=== PATIENT | male | born 1945 | race Two or more races ===

== ENCOUNTER 2020-06-09 21:59 | Inpatient (IN) | payer OTHER ==
[~2020-06-09] VITALS: Ht 172.7 cm; Wt 83.4 kg
[2020-06-10 00:03] LABS: Basophils # (auto) 0 10 ^3/uL (0-0.2); Eosinophils # (auto) 0 10 ^3/uL (0-0.8); Hematocrit 49.6 % (41.0-53.0); Lymphocytes # (auto) 0.2 10 ^3/uL (0.4-5.4); Lymphocytes % (auto) 1.8 % (10.0-50.0); Mean Corpuscular Hemoglobin 33.8 pg (28.0-32.0); Mean Corpuscular Hgb Conc. 34.4 g/dL (32.0-36.0); Mean Corpuscular Volume 98.5 fL (80.0-100.0); Monocytes # (auto) 0.4 10 ^3/uL (0-1.3); Monocytes % (auto) 2.9 % (0.0-12.0); Neutrophils # (auto) 12.8 10 ^3/uL (1.6-8.6); Neutrophils % (auto) 95.3 % (37.0-80.0); Red Blood Cells 5.03 10^6/uL (4.5-5.90); White Blood Cell 13.5 10^3/uL (4.4-10.8)
[2020-06-10] MEDS ORDERED: DexAMETHasone SOD PHOS 10MG/1ML VIAL INJ IV ONE (00:15)
[2020-06-10] MEDS ORDERED: DOXYCYCLINE 100MG/250ML 250 ML IV ONE (00:15)
[2020-06-10 00:17] LABS: Albumin 2.8 g/dL (3.4-5.0); BUN/Creatinine Ratio 19.5; Calcium 8.5 mg/dL (8.5-10.1); Potassium 3.8 mmol/L (3.5-5.1)
[2020-06-10 00:18] LABS: INR 1.35 (0.9-1.15); Partial Thromboplastin Time 28.6 sec (23.0-31.2)
[2020-06-10 00:19] LABS: Lactic Acid w/Reflex 5.2 mmol/L (0.4-2.0)
[2020-06-10 00:22] LABS: Bilirubin, Total 1.2 mg/dL (0.2-1.0); Total Protein 6.8 g/dL (6.4-8.2)
[2020-06-10] MEDS ORDERED: ENOXAPARIN SOD 100 MG/1 ML SYRINGE SC ONE (00:45)
[2020-06-10 02:30] VITALS: BP 114/74
[2020-06-10] MEDS ORDERED: HYDROcodone-ACET 5/325MG TAB PO PRN (03:45)
[2020-06-10] MEDS ORDERED: ONDANSETRON HCL 4 MG/2 ML VIAL IV PRN (03:45)
[2020-06-10] MEDS ORDERED: SODIUM CHLORIDE 0.9% 1,000 ML IV SCH (03:45)
[2020-06-10] MEDS ORDERED: DOCUSATE SOD 100 MG CAP PO PRN (03:45)
[2020-06-10] MEDS ORDERED: DEXTROSE (50%) 50ML SYRG IV PRN (03:45)
[2020-06-10] MEDS ORDERED: NITROGLYCERIN 0.4 MG SL TAB SL PRN (03:45)
[2020-06-10 06:00] VITALS: BP 114/74
[2020-06-10] MEDS: InsuLIN REG 1unit/0.01ml Soln (100units/ml) SC SCH ×4 (06:38→22:35)
[2020-06-10] MEDS: ACCU-CHEK COMFORT CURVE STRIP VI SCH ×4 (06:38→22:23)
[2020-06-10 10:00] VITALS: BP 114/74
[2020-06-10] MEDS ORDERED: ENOXAPARIN SOD 40 MG/0.4 ML SYRINGE SC SCH (10:00)
[2020-06-10] MEDS ORDERED: DOXYCYCLINE 100MG/250ML 250 ML IV SCH (10:00)
[2020-06-10] MEDS ORDERED: DexAMETHasone SOD PHOS 10MG/1ML VIAL INJ IV SCH (10:00)
[2020-06-10] MEDS: MULTIPLE VITAMIN TAB PO SCH ×2 (10:00→12:00)
[2020-06-10] MEDS ORDERED: BUDESONIDE (INHALATION) 180 MCG IH IN SCH (10:00)
[2020-06-10] MEDS: ASCORBIC ACID 1,000 MG TAB PO SCH ×2 (10:00→12:00)
[2020-06-10] MEDS: ZINC SULFATE 220mg CAP or TAB PO SCH ×2 (10:00→12:00)
[2020-06-10] MEDS: CHOLECALCIFEROL (VITD3) 2,000 UNIT CAP/TAB PO SCH ×2 (10:00→12:00)
[2020-06-10] MEDS ORDERED: HEPARIN SODIUM (PORCINE) 5000 UNITS/ML 1ML VIAL SC SCH (10:00)
[2020-06-10 10:04] LABS: Basophils # (auto) 0.1 10 ^3/uL (0-0.2); Basophils % (auto) 0.9 % (0.0-2.0); Eosinophils # (auto) 0 10 ^3/uL (0-0.8); Eosinophils % (auto) 0.1 % (0.0-7.0); Hematocrit 50.5 % (41.0-53.0); Hemoglobin 17.3 g/dL (13.5-17.5); Lymphocytes # (auto) 0.3 10 ^3/uL (0.4-5.4); Lymphocytes % (auto) 1.9 % (10.0-50.0); Mean Corpuscular Hemoglobin 33.3 pg (28.0-32.0); Mean Corpuscular Hgb Conc. 34.2 g/dL (32.0-36.0); Mean Corpuscular Volume 97.3 fL (80.0-100.0); Monocytes # (auto) 0.4 10 ^3/uL (0-1.3); Monocytes % (auto) 2.7 % (0.0-12.0); Neutrophils # (auto) 14.9 10 ^3/uL (1.6-8.6); Neutrophils % (auto) 94.4 % (37.0-80.0); Red Blood Cells 5.19 10^6/uL (4.5-5.90); White Blood Cell 15.8 10^3/uL (4.4-10.8)
[2020-06-10 10:27] LABS: Albumin 2.7 g/dL (3.4-5.0); Calcium 8.4 mg/dL (8.5-10.1); Potassium 3.8 mmol/L (3.5-5.1)
[2020-06-10 10:30] LABS: Bilirubin, Total 1.1 mg/dL (0.2-1.0); Total Protein 6.9 g/dL (6.4-8.2)
[2020-06-10] MEDS ORDERED: FUROSEMIDE 40 MG/4 ML VIAL IV ONE ×2 (12:00→16:00)
[2020-06-10] MEDS ORDERED: REMDESIVIR PER PHARMACY 0 ML IV SCH (12:00)
[2020-06-10] MEDS: FAMOTIDINE (10MG/ML) 2ML VL IV SCH ×2 (12:00→22:00)
[2020-06-10] MEDS ORDERED: diphenhdrAMINE HCL 50 MG/1 ML VL IV PRN (12:00)
[2020-06-10] MEDS ORDERED: LORazepam 2MG/ML-1ML VIAL ONE (13:41)
[2020-06-10] MEDS ORDERED: LORazepam 2MG/ML-1ML VIAL IV PRN (13:45)
[2020-06-10] MEDS ORDERED: SUCCINYLCHOLINE CHLORIDE 20 MG/ML 10ML VIAL IV ONE ×2 (14:14→14:15)
[2020-06-10] MEDS ORDERED: ETOMIDATE (2MG/ML) 20ML VIAL IV ONE ×2 (14:14→14:15)
[2020-06-10] MEDS: MIDAZOLAM DRIP 50 mg/50mL 50 ML IV SCH (14:15)
[2020-06-10] MEDS: fentaNYL Drip 2500mCg/250mlNS 250 ML IV SCH (14:15)
[2020-06-10] MEDS: PROPOFOL 100 ML IV SCH (14:15)
[2020-06-10] MEDS ORDERED: MIDAZOLAM DRIP 50 mg/50mL 50 ML IV ONE (14:18)
[2020-06-10] MEDS: DOXYCYCLINE 100MG/250ML 250 ML IV SCH (14:30)
[2020-06-10 14:57] VITALS: BP 151/121
[2020-06-10] MEDS ORDERED: REMDESIVIR 200 MG in NS 210ml LOADING DOSE ADULT IV ONE (15:00)
[2020-06-10] MEDS: NOREPINEPHRINE 8 MG/250ML KIT 250 ML IV SCH (16:32)
[2020-06-10] MEDS: CEFEPIME 1 GM in SODIUM CHL 0.9% 50 ML IV SCH (17:30)
[2020-06-10 18:15] VITALS: BP 103/67
[2020-06-10] MEDS: ENOXAPARIN SOD 100 MG/1 ML SYRINGE SC SCH (22:00)
[2020-06-10] MEDS ORDERED: CEFEPIME 1 GM in SODIUM CHL 0.9% 50 ML IV SCH (22:00)
[2020-06-10] MEDS: DexAMETHasone SOD PHOS 10MG/1ML VIAL INJ IV SCH (22:00)
[2020-06-10 22:14] VITALS: BP 130/63
[2020-06-11] MEDS: CEFEPIME 1 GM in SODIUM CHL 0.9% 50 ML IV SCH ×3 (01:10→16:37)
[2020-06-11 02:33] VITALS: BP 106/65
[2020-06-11] MEDS: DOXYCYCLINE 100MG/250ML 250 ML IV SCH ×2 (03:49→14:02)
[2020-06-11 06:35] VITALS: BP 104/64
[2020-06-11] MEDS: ACCU-CHEK COMFORT CURVE STRIP VI SCH ×4 (06:43→21:48)
[2020-06-11] MEDS: InsuLIN REG 1unit/0.01ml Soln (100units/ml) SC SCH ×4 (07:01→22:26)
[2020-06-11 07:14] LABS: Basophils # (auto) 0.1 10 ^3/uL (0-0.2); Basophils % (auto) 0.3 % (0.0-2.0); Eosinophils # (auto) 0 10 ^3/uL (0-0.8); Hematocrit 45.9 % (41.0-53.0); Hemoglobin 15.7 g/dL (13.5-17.5); Lymphocytes # (auto) 0.2 10 ^3/uL (0.4-5.4); Mean Corpuscular Hemoglobin 33.6 pg (28.0-32.0); Mean Corpuscular Hgb Conc. 34.2 g/dL (32.0-36.0); Mean Corpuscular Volume 98.2 fL (80.0-100.0); Monocytes # (auto) 0.5 10 ^3/uL (0-1.3); Monocytes % (auto) 2.4 % (0.0-12.0); Neutrophils # (auto) 20.7 10 ^3/uL (1.6-8.6); Neutrophils % (auto) 96.3 % (37.0-80.0); Nucleated Red Blood Cells % 0.1 %; Red Blood Cells 4.68 10^6/uL (4.5-5.90); Red Cell Distribution Width 14.3 % (11.8-14.3); White Blood Cell 21.5 10^3/uL (4.4-10.8)
[2020-06-11 07:49] LABS: Albumin 2.5 g/dL (3.4-5.0); BUN/Creatinine Ratio 22.2; Calcium 8.5 mg/dL (8.5-10.1); Potassium 3.9 mmol/L (3.5-5.1)
[2020-06-11 07:52] LABS: Bilirubin, Total 0.6 mg/dL (0.2-1.0); Total Protein 6.5 g/dL (6.4-8.2)
[2020-06-11] MEDS: ENOXAPARIN SOD 100 MG/1 ML SYRINGE SC SCH ×2 (08:57→21:17)
[2020-06-11] MEDS: ZINC SULFATE 220mg CAP or TAB PO SCH (08:57)
[2020-06-11] MEDS: CHOLECALCIFEROL (VITD3) 2,000 UNIT CAP/TAB PO SCH (08:57)
[2020-06-11] MEDS: DexAMETHasone SOD PHOS 10MG/1ML VIAL INJ IV SCH ×2 (08:57→21:17)
[2020-06-11] MEDS: MULTIPLE VITAMIN TAB PO SCH (08:57)
[2020-06-11] MEDS: ASCORBIC ACID 1,000 MG TAB PO SCH (08:57)
[2020-06-11] MEDS: FAMOTIDINE (10MG/ML) 2ML VL IV SCH ×2 (08:57→21:17)
[2020-06-11] MEDS: ALBUMIN 25% 100 ML IV SCH ×2 (11:27→19:18)
[2020-06-11] MEDS: MIDAZOLAM DRIP 50 mg/50mL 50 ML IV SCH (14:03)
[2020-06-11] MEDS: PROPOFOL 100 ML IV SCH (14:03)
[2020-06-11] MEDS: fentaNYL Drip 2500mCg/250mlNS 250 ML IV SCH (14:03)
[2020-06-11] MEDS: REMDESIVIR 100 MG in SODIUM CHL 0.9% 250 ML IV SCH (15:00)
[2020-06-11 15:02] VITALS: BP 107/63
[2020-06-11] MEDS: NOREPINEPHRINE 8 MG/250ML KIT 250 ML IV SCH (16:37)
[2020-06-11 18:59] VITALS: BP 114/64
[2020-06-11] MEDS ORDERED: ACETAMINOPHEN 650 mg PER 20.3 mL UD PO ONE (20:00)
[2020-06-11] MEDS ORDERED: methylPREDNISolone SOD SUCC 40 MG/ML VL IV ONE (20:00)
[2020-06-11] MEDS ORDERED: diphenhdrAMINE HCL 50 MG/1 ML VL IV ONE (20:00)
[2020-06-11] MEDS ORDERED: TOCILIZUMAB 400 MG in SODIUM CHL 0.9% 80 ML IV ONE (20:30)
[2020-06-11 22:21] VITALS: BP 155/77
[2020-06-12 01:31] LABS: Basophils # (auto) 0 10 ^3/uL (0-0.2); Eosinophils # (auto) 0 10 ^3/uL (0-0.8); Hematocrit 41.4 % (41.0-53.0); Hemoglobin 14.3 g/dL (13.5-17.5); Lymphocytes # (auto) 0.3 10 ^3/uL (0.4-5.4); Lymphocytes % (auto) 1.7 % (10.0-50.0); Mean Corpuscular Hemoglobin 33.8 pg (28.0-32.0); Mean Corpuscular Hgb Conc. 34.6 g/dL (32.0-36.0); Mean Corpuscular Volume 97.7 fL (80.0-100.0); Monocytes # (auto) 0.8 10 ^3/uL (0-1.3); Monocytes % (auto) 4.3 % (0.0-12.0); Neutrophils # (auto) 17.2 10 ^3/uL (1.6-8.6); Nucleated Red Blood Cells % 0.1 %; Red Blood Cells 4.24 10^6/uL (4.5-5.90); Red Cell Distribution Width 14.2 % (11.8-14.3); White Blood Cell 18.3 10^3/uL (4.4-10.8)
[2020-06-12] MEDS: DOXYCYCLINE 100MG/250ML 250 ML IV SCH ×2 (01:40→14:44)
[2020-06-12 01:45] LABS: Albumin 3.3 g/dL (3.4-5.0); Calcium 8.5 mg/dL (8.5-10.1); Potassium 3.9 mmol/L (3.5-5.1)
[2020-06-12 01:48] LABS: BUN/Creatinine Ratio 24.3
[2020-06-12 01:59] LABS: Bilirubin, Total 0.7 mg/dL (0.2-1.0); Total Protein 6.6 g/dL (6.4-8.2)
[2020-06-12] MEDS: ALBUMIN 25% 100 ML IV SCH (02:02)
[2020-06-12 02:23] VITALS: BP 167/66
[2020-06-12] MEDS: ACCU-CHEK COMFORT CURVE STRIP VI SCH ×4 (05:17→22:24)
[2020-06-12] MEDS: InsuLIN REG 1unit/0.01ml Soln (100units/ml) SC SCH ×4 (05:46→22:12)
[2020-06-12 07:14] VITALS: BP 160/72
[2020-06-12] MEDS ORDERED: ACETAMINOPHEN 650 mg PER 20.3 mL UD PO ONE (09:30)
[2020-06-12] MEDS ORDERED: methylPREDNISolone SOD SUCC 40 MG/ML VL IV ONE (09:30)
[2020-06-12] MEDS ORDERED: diphenhdrAMINE HCL 50 MG/1 ML VL IV ONE (09:30)
[2020-06-12] MEDS: CEFEPIME 1 GM in SODIUM CHL 0.9% 50 ML IV SCH ×2 (10:00→22:16)
[2020-06-12] MEDS: ZINC SULFATE 220mg CAP or TAB PO SCH (10:00)
[2020-06-12] MEDS: ASCORBIC ACID 1,000 MG TAB PO SCH (10:00)
[2020-06-12] MEDS: DexAMETHasone SOD PHOS 10MG/1ML VIAL INJ IV SCH ×2 (10:00→22:16)
[2020-06-12] MEDS: MULTIPLE VITAMIN TAB PO SCH (10:00)
[2020-06-12] MEDS: ENOXAPARIN SOD 100 MG/1 ML SYRINGE SC SCH (10:00)
[2020-06-12] MEDS: CHOLECALCIFEROL (VITD3) 2,000 UNIT CAP/TAB PO SCH (10:00)
[2020-06-12] MEDS ORDERED: TOCILIZUMAB 400 MG in SODIUM CHL 0.9% 80 ML IV ONE (10:00)
[2020-06-12 11:49] VITALS: BP 179/74
[2020-06-12] MEDS: LABETALOL HCL 5 MG/ML 4ML SYRINGE IV PRN (12:25)
[2020-06-12 14:12] VITALS: BP 126/68
[2020-06-12] MEDS: MIDAZOLAM DRIP 50 mg/50mL 50 ML IV SCH (14:15)
[2020-06-12] MEDS: PROPOFOL 100 ML IV SCH (14:15)
[2020-06-12] MEDS: fentaNYL Drip 2500mCg/250mlNS 250 ML IV SCH (14:15)
[2020-06-12] MEDS: REMDESIVIR 100 MG in SODIUM CHL 0.9% 250 ML IV SCH (15:06)
[2020-06-12] MEDS: NOREPINEPHRINE 8 MG/250ML KIT 250 ML IV SCH (15:08)
[2020-06-12 18:37] VITALS: BP 153/69
[2020-06-12 21:37] VITALS: BP 171/81
[2020-06-12] MEDS ORDERED: FAMOTIDINE (10MG/ML) 2ML VL IV SCH (22:00)
[2020-06-13 01:31] VITALS: BP 130/64
[2020-06-13] MEDS: DOXYCYCLINE 100MG/250ML 250 ML IV SCH (01:51)
[2020-06-13] MEDS: InsuLIN REG 1unit/0.01ml Soln (100units/ml) SC SCH ×4 (06:26→22:44)
[2020-06-13] MEDS: ACCU-CHEK COMFORT CURVE STRIP VI SCH ×4 (06:27→22:00)
[2020-06-13 07:10] VITALS: BP 126/66
[2020-06-13 07:46] LABS: Albumin 2.8 g/dL (3.4-5.0); BUN/Creatinine Ratio 27.5; Bilirubin, Total 0.6 mg/dL (0.2-1.0); Calcium 8.8 mg/dL (8.5-10.1); Total Protein 6.2 g/dL (6.4-8.2)
[2020-06-13] MEDS: MIDAZOLAM DRIP 50 mg/50mL 50 ML IV SCH ×2 (08:28→08:38)
[2020-06-13 09:22] LABS: Basophils # (auto) 0 10 ^3/uL (0-0.2); Basophils % (auto) 0.1 % (0.0-2.0); Eosinophils # (auto) 0 10 ^3/uL (0-0.8); Hematocrit 41.4 % (41.0-53.0); Lymphocytes # (auto) 0.3 10 ^3/uL (0.4-5.4); Lymphocytes % (auto) 1.9 % (10.0-50.0); Mean Corpuscular Hgb Conc. 33.7 g/dL (32.0-36.0); Monocytes % (auto) 6.8 % (0.0-12.0); Neutrophils % (auto) 91.2 % (37.0-80.0); Red Blood Cells 4.23 10^6/uL (4.5-5.90); Red Cell Distribution Width 14.4 % (11.8-14.3); White Blood Cell 14.3 10^3/uL (4.4-10.8)
[2020-06-13] MEDS ORDERED: ENOXAPARIN SOD 100 MG/1 ML SYRINGE SC SCH (10:00)
[2020-06-13] MEDS: DexAMETHasone SOD PHOS 10MG/1ML VIAL INJ IV SCH (10:16)
[2020-06-13] MEDS: ZINC SULFATE 220mg CAP or TAB PO SCH (10:17)
[2020-06-13] MEDS: MULTIPLE VITAMIN TAB PO SCH (10:18)
[2020-06-13] MEDS: CHOLECALCIFEROL (VITD3) 2,000 UNIT CAP/TAB PO SCH (10:18)
[2020-06-13] MEDS: ASCORBIC ACID 1,000 MG TAB PO SCH (10:18)
[2020-06-13] MEDS: CEFEPIME 1 GM in SODIUM CHL 0.9% 50 ML IV SCH ×2 (10:19→23:51)
[2020-06-13 11:15] VITALS: BP 133/62
[2020-06-13] MEDS ORDERED: Glucerna 1.2 Cal 1Liter BOTTLE GT SCH (11:45)
[2020-06-13] MEDS: fentaNYL Drip 2500mCg/250mlNS 250 ML IV SCH (14:15)
[2020-06-13] MEDS: PROPOFOL 100 ML IV SCH (14:15)
[2020-06-13 15:37] VITALS: BP 119/61
[2020-06-13] MEDS: NOREPINEPHRINE 8 MG/250ML KIT 250 ML IV SCH (16:15)
[2020-06-13 18:38] VITALS: BP 125/60
[2020-06-13 22:16] VITALS: BP 133/69
[2020-06-13] MEDS: FAMOTIDINE (10MG/ML) 2ML VL IV SCH (22:43)
[2020-06-14 02:30] VITALS: BP 141/73
[2020-06-14] MEDS: DOXYCYCLINE 100MG/250ML 250 ML IV SCH ×3 (03:28→14:30)
[2020-06-14] MEDS: MIDAZOLAM DRIP 50 mg/50mL 50 ML IV SCH ×2 (03:52→08:29)
[2020-06-14] MEDS: fentaNYL Drip 2500mCg/250mlNS 250 ML IV SCH (03:52)
[2020-06-14] MEDS: ACCU-CHEK COMFORT CURVE STRIP VI SCH ×4 (06:45→23:14)
[2020-06-14 06:46] VITALS: BP 107/61
[2020-06-14] MEDS: InsuLIN REG 1unit/0.01ml Soln (100units/ml) SC SCH ×4 (06:47→23:20)
[2020-06-14 07:08] LABS: Hematocrit 40.9 % (41.0-53.0); Hemoglobin 13.8 g/dL (13.5-17.5); Mean Corpuscular Hemoglobin 33.3 pg (28.0-32.0); Mean Corpuscular Hgb Conc. 33.8 g/dL (32.0-36.0); Mean Corpuscular Volume 98.6 fL (80.0-100.0); Red Blood Cells 4.15 10^6/uL (4.5-5.90); Red Cell Distribution Width 14.4 % (11.8-14.3); White Blood Cell 11.2 10^3/uL (4.4-10.8)
[2020-06-14 07:41] LABS: Basophils % (manual) 0 (0.0-2.0); Blast Cells 0; Eosinophils % (manual) 0 (0-7); Lymphocytes % (manual) 0 (10.0-50.0); Metamyelocytes % 0; Myelocytes % 0; Promyelocytes % 0; Reactive Lymphocytes 0
[2020-06-14 08:19] LABS: Albumin 2.7 g/dL (3.4-5.0); BUN/Creatinine Ratio 36.9; Bilirubin, Total 0.7 mg/dL (0.2-1.0); CRP High Sensitivity 2.89 mg/dL (< 0.3); Calcium 8.8 mg/dL (8.5-10.1); Potassium 4.6 mmol/L (3.5-5.1); Total Protein 6.1 g/dL (6.4-8.2)
[2020-06-14] MEDS: DexAMETHasone SOD PHOS 10MG/1ML VIAL INJ IV SCH (10:00)
[2020-06-14] MEDS: FAMOTIDINE (10MG/ML) 2ML VL IV SCH ×2 (10:00→23:14)
[2020-06-14] MEDS: MULTIPLE VITAMIN TAB PO SCH (10:00)
[2020-06-14] MEDS: ZINC SULFATE 220mg CAP or TAB PO SCH (10:00)
[2020-06-14] MEDS: ASCORBIC ACID 1,000 MG TAB PO SCH (10:00)
[2020-06-14] MEDS: CHOLECALCIFEROL (VITD3) 2,000 UNIT CAP/TAB PO SCH (10:00)
[2020-06-14 11:47] LABS: Band Neutrophils % (manual) 4; Monocytes % (manual) 3 (0-12)
[2020-06-14] MEDS: CEFEPIME 1 GM in SODIUM CHL 0.9% 50 ML IV SCH ×2 (12:31→23:14)
[2020-06-14 14:08] VITALS: BP 115/66
[2020-06-14] MEDS: PROPOFOL 100 ML IV SCH (15:04)
[2020-06-14] MEDS: REMDESIVIR 100 MG in SODIUM CHL 0.9% 250 ML IV SCH (15:16)
[2020-06-14] MEDS: NOREPINEPHRINE 8 MG/250ML KIT 250 ML IV SCH (19:30)
[2020-06-14 19:39] VITALS: BP 108/58
[2020-06-14 22:38] VITALS: BP 113/61
[2020-06-14] MEDS: ENOXAPARIN SOD 40 MG/0.4 ML SYRINGE SC SCH (23:14)
[2020-06-15 02:24] VITALS: BP 114/62
[2020-06-15] MEDS: DOXYCYCLINE 100MG/250ML 250 ML IV SCH ×2 (02:40→14:54)
[2020-06-15 06:40] VITALS: BP 130/65
[2020-06-15] MEDS: InsuLIN REG 1unit/0.01ml Soln (100units/ml) SC SCH ×4 (07:00→23:30)
[2020-06-15] MEDS: ACCU-CHEK COMFORT CURVE STRIP VI SCH ×4 (07:08→23:27)
[2020-06-15] MEDS: FAMOTIDINE (10MG/ML) 2ML VL IV SCH ×2 (10:00→23:30)
[2020-06-15] MEDS: DexAMETHasone SOD PHOS 10MG/1ML VIAL INJ IV SCH (10:00)
[2020-06-15] MEDS: CEFEPIME 1 GM in SODIUM CHL 0.9% 50 ML IV SCH ×2 (10:00→22:30)
[2020-06-15] MEDS: CHOLECALCIFEROL (VITD3) 2,000 UNIT CAP/TAB PO SCH (10:00)
[2020-06-15] MEDS: ENOXAPARIN SOD 40 MG/0.4 ML SYRINGE SC SCH ×2 (10:00→23:30)
[2020-06-15] MEDS: ZINC SULFATE 220mg CAP or TAB PO SCH (10:00)
[2020-06-15] MEDS: ASCORBIC ACID 1,000 MG TAB PO SCH (10:00)
[2020-06-15] MEDS: MULTIPLE VITAMIN TAB PO SCH (10:00)
[2020-06-15 10:57] LABS: BUN/Creatinine Ratio 49.7; Calcium 8.7 mg/dL (8.5-10.1); Potassium 5.2 mmol/L (3.5-5.1)
[2020-06-15] MEDS: MIDAZOLAM DRIP 50 mg/50mL 50 ML IV SCH (11:36)
[2020-06-15] MEDS: PROPOFOL 100 ML IV SCH (11:36)
[2020-06-15 12:10] VITALS: BP 125/66
[2020-06-15] MEDS ORDERED: FUROSEMIDE 40 MG/4 ML VIAL IV ONE (13:30)
[2020-06-15] MEDS: ALBUMIN 25% 100 ML IV SCH ×2 (13:30→23:40)
[2020-06-15] MEDS: REMDESIVIR 100 MG in SODIUM CHL 0.9% 250 ML IV SCH (15:00)
[2020-06-15 15:18] LABS: Calcium 8.5 mg/dL (8.5-10.1); Potassium 5.3 mmol/L (3.5-5.1)
[2020-06-15 15:20] LABS: BUN/Creatinine Ratio 52.3
[2020-06-15 16:05] VITALS: BP 122/77
[2020-06-15 18:15] VITALS: BP 114/67
[2020-06-15] MEDS: NOREPINEPHRINE 8 MG/250ML KIT 250 ML IV SCH (19:30)
[2020-06-15] MEDS: fentaNYL Drip 2500mCg/250mlNS 250 ML IV SCH (19:30)
[2020-06-15 22:20] VITALS: BP 105/67
[2020-06-16 01:55] VITALS: BP 127/69
[2020-06-16] MEDS: DOXYCYCLINE 100MG/250ML 250 ML IV SCH ×2 (02:40→14:48)
[2020-06-16 06:26] VITALS: BP 128/74
[2020-06-16] MEDS: InsuLIN REG 1unit/0.01ml Soln (100units/ml) SC SCH ×4 (07:00→21:18)
[2020-06-16] MEDS: ACCU-CHEK COMFORT CURVE STRIP VI SCH ×4 (07:00→21:17)
[2020-06-16 07:46] LABS: Basophils # (auto) 0 10 ^3/uL (0-0.2); Basophils % (auto) 0.2 % (0.0-2.0); Eosinophils # (auto) 0 10 ^3/uL (0-0.8); Eosinophils % (auto) 0.1 % (0.0-7.0); Hematocrit 41.4 % (41.0-53.0); Hemoglobin 13.8 g/dL (13.5-17.5); Lymphocytes # (auto) 0.2 10 ^3/uL (0.4-5.4); Lymphocytes % (auto) 1.9 % (10.0-50.0); Mean Corpuscular Hemoglobin 33.4 pg (28.0-32.0); Mean Corpuscular Hgb Conc. 33.3 g/dL (32.0-36.0); Mean Corpuscular Volume 100.3 fL (80.0-100.0); Monocytes # (auto) 0.4 10 ^3/uL (0-1.3); Monocytes % (auto) 4.4 % (0.0-12.0); Neutrophils # (auto) 9.2 10 ^3/uL (1.6-8.6); Neutrophils % (auto) 93.4 % (37.0-80.0); Red Blood Cells 4.13 10^6/uL (4.5-5.90); Red Cell Distribution Width 14.4 % (11.8-14.3); White Blood Cell 9.9 10^3/uL (4.4-10.8)
[2020-06-16 08:03] LABS: Calcium 8.6 mg/dL (8.5-10.1); Potassium 5.5 mmol/L (3.5-5.1)
[2020-06-16 08:06] LABS: BUN/Creatinine Ratio 49.7; Bilirubin, Total 0.9 mg/dL (0.2-1.0)
[2020-06-16] MEDS ORDERED: ALBUMIN 25% 100 ML IV ONE (08:59)
[2020-06-16] MEDS: ALBUMIN 25% 100 ML IV SCH (09:00)
[2020-06-16] MEDS ORDERED: SODIUM ZIRCONIUM CYCL 10 GM PAK PO ONE (09:15)
[2020-06-16] MEDS ORDERED: FUROSEMIDE 40 MG/4 ML VIAL IV ONE (09:15)
[2020-06-16] MEDS ORDERED: SODIUM CHLORIDE 0.9% 500 ML IV ONE (09:15)
[2020-06-16] MEDS ORDERED: ALBUTEROL SULF 2.5 MG/0.5ML(0.5%) NEB SOLN NEB ONE (09:15)
[2020-06-16] MEDS ORDERED: SODIUM BICARBONATE 8.4% INJ 50ML SYRINGE IV ONE (09:15)
[2020-06-16] MEDS: CEFEPIME 1 GM in SODIUM CHL 0.9% 50 ML IV SCH ×2 (10:38→21:34)
[2020-06-16] MEDS: ASCORBIC ACID 1,000 MG TAB PO SCH (10:39)
[2020-06-16] MEDS: ENOXAPARIN SOD 40 MG/0.4 ML SYRINGE SC SCH ×2 (10:39→21:34)
[2020-06-16] MEDS: CHOLECALCIFEROL (VITD3) 2,000 UNIT CAP/TAB PO SCH (10:39)
[2020-06-16] MEDS: MULTIPLE VITAMIN TAB PO SCH (10:39)
[2020-06-16] MEDS: FAMOTIDINE (10MG/ML) 2ML VL IV SCH ×2 (10:39→21:34)
[2020-06-16] MEDS: ZINC SULFATE 220mg CAP or TAB PO SCH (10:39)
[2020-06-16] MEDS: MIDAZOLAM DRIP 50 mg/50mL 50 ML IV SCH (11:10)
[2020-06-16 11:15] VITALS: BP 156/75
[2020-06-16 13:37] VITALS: BP 110/71
[2020-06-16] MEDS: fentaNYL Drip 2500mCg/250mlNS 250 ML IV SCH ×2 (14:15→17:00)
[2020-06-16] MEDS: PROPOFOL 100 ML IV SCH (14:15)
[2020-06-16] MEDS: SODIUM ZIRCONIUM CYCL 10 GM PAK PO SCH ×2 (15:12→21:34)
[2020-06-16] MEDS: NOREPINEPHRINE 8 MG/250ML KIT 250 ML IV SCH (16:15)
[2020-06-16 18:41] VITALS: BP 117/73
[2020-06-16 22:46] VITALS: BP 121/66
[2020-06-17 02:36] VITALS: BP 122/65
[2020-06-17] MEDS: DOXYCYCLINE 100MG/250ML 250 ML IV SCH ×2 (02:57→14:44)
[2020-06-17] MEDS: SODIUM ZIRCONIUM CYCL 10 GM PAK PO SCH ×3 (05:59→21:34)
[2020-06-17] MEDS: ACCU-CHEK COMFORT CURVE STRIP VI SCH ×4 (06:40→22:13)
[2020-06-17] MEDS: InsuLIN REG 1unit/0.01ml Soln (100units/ml) SC SCH ×4 (06:40→22:00)
[2020-06-17 07:09] VITALS: BP 127/77
[2020-06-17 09:15] LABS: Basophils # (auto) 0 10 ^3/uL (0-0.2); Eosinophils # (auto) 0.2 10 ^3/uL (0-0.8); Eosinophils % (auto) 1.9 % (0.0-7.0); Hematocrit 44.2 % (41.0-53.0); Hemoglobin 14.4 g/dL (13.5-17.5); Lymphocytes # (auto) 0.5 10 ^3/uL (0.4-5.4); Lymphocytes % (auto) 4.3 % (10.0-50.0); Mean Corpuscular Hemoglobin 32.7 pg (28.0-32.0); Mean Corpuscular Hgb Conc. 32.6 g/dL (32.0-36.0); Mean Corpuscular Volume 100.4 fL (80.0-100.0); Monocytes # (auto) 0.3 10 ^3/uL (0-1.3); Monocytes % (auto) 2.2 % (0.0-12.0); Neutrophils # (auto) 11.2 10 ^3/uL (1.6-8.6); Neutrophils % (auto) 91.6 % (37.0-80.0); Red Cell Distribution Width 14.7 % (11.8-14.3); White Blood Cell 12.3 10^3/uL (4.4-10.8)
[2020-06-17 09:42] LABS: BUN/Creatinine Ratio 48.6; Bilirubin, Total 1.2 mg/dL (0.2-1.0)
[2020-06-17 10:42] LABS: Calcium 10.5 mg/dL (8.5-10.1)
[2020-06-17 10:48] LABS: Albumin 3.2 g/dL (3.4-5.0)
[2020-06-17] MEDS ORDERED: SODIUM BICARBONATE 8.4 % INJ 50ML VIAL IV ONE (11:00)
[2020-06-17] MEDS: ZINC SULFATE 220mg CAP or TAB PO SCH (11:03)
[2020-06-17] MEDS: MULTIPLE VITAMIN TAB PO SCH (11:03)
[2020-06-17] MEDS: CHOLECALCIFEROL (VITD3) 2,000 UNIT CAP/TAB PO SCH (11:03)
[2020-06-17] MEDS: ASCORBIC ACID 1,000 MG TAB PO SCH (11:03)
[2020-06-17] MEDS: ENOXAPARIN SOD 40 MG/0.4 ML SYRINGE SC SCH ×2 (11:03→21:34)
[2020-06-17] MEDS: FAMOTIDINE (10MG/ML) 2ML VL IV SCH ×2 (11:03→21:34)
[2020-06-17] MEDS: CEFEPIME 1 GM in SODIUM CHL 0.9% 50 ML IV SCH ×2 (12:53→21:34)
[2020-06-17 13:15] VITALS: BP 97/65
[2020-06-17] MEDS: PROPOFOL 100 ML IV SCH (14:15)
[2020-06-17] MEDS: MIDAZOLAM DRIP 50 mg/50mL 50 ML IV SCH (14:44)
[2020-06-17] MEDS: NOREPINEPHRINE 8 MG/250ML KIT 250 ML IV SCH (16:15)
[2020-06-17 18:30] VITALS: BP 94/61
[2020-06-17 22:30] VITALS: BP 102/58
[2020-06-18 02:10] VITALS: BP 94/65
[2020-06-18] MEDS: DOXYCYCLINE 100MG/250ML 250 ML IV SCH (02:52)
[2020-06-18] MEDS: SODIUM ZIRCONIUM CYCL 10 GM PAK PO SCH (05:53)
[2020-06-18] MEDS: ACCU-CHEK COMFORT CURVE STRIP VI SCH ×4 (06:07→23:15)
[2020-06-18] MEDS: InsuLIN REG 1unit/0.01ml Soln (100units/ml) SC SCH ×4 (06:10→23:19)
[2020-06-18 06:20] LABS: Basophils # (auto) 0 10 ^3/uL (0-0.2); Basophils % (auto) 0.2 % (0.0-2.0); Eosinophils # (auto) 0.2 10 ^3/uL (0-0.8); Eosinophils % (auto) 1.4 % (0.0-7.0); Hematocrit 39.9 % (41.0-53.0); Hemoglobin 13.5 g/dL (13.5-17.5); Lymphocytes # (auto) 0.3 10 ^3/uL (0.4-5.4); Lymphocytes % (auto) 2.6 % (10.0-50.0); Mean Corpuscular Hemoglobin 33.6 pg (28.0-32.0); Mean Corpuscular Hgb Conc. 33.9 g/dL (32.0-36.0); Mean Corpuscular Volume 99.1 fL (80.0-100.0); Monocytes # (auto) 0.3 10 ^3/uL (0-1.3); Monocytes % (auto) 2.3 % (0.0-12.0); Neutrophils # (auto) 11.1 10 ^3/uL (1.6-8.6); Neutrophils % (auto) 93.5 % (37.0-80.0); Red Blood Cells 4.03 10^6/uL (4.5-5.90); Red Cell Distribution Width 14.6 % (11.8-14.3); White Blood Cell 11.9 10^3/uL (4.4-10.8)
[2020-06-18 06:36] LABS: INR 1.18 (0.9-1.15); Partial Thromboplastin Time 27.7 sec (23.0-31.2)
[2020-06-18 07:51] LABS: Sodium 144 mmol/L (136-145)
[2020-06-18 07:52] LABS: Alanine Aminotransferase 26 U/L (16-61); Alkaline Phosphatase 57 U/L (45-117); Anion Gap 1 (5-15); Aspartate Aminotransferase 21 U/L (15-37); Calcium 8.3 mg/dL (8.5-10.1); Carbon Dioxide 31 mmol/L (21-32); Chloride 112 mmol/L (98-107); GFR African American 64 mL/min; GFR Non-African American 53 mL/min; Glucose 153 mg/dL (74-106); Potassium 4.8 mmol/L (3.5-5.1)
[2020-06-18 07:53] LABS: Albumin 2.7 g/dL (3.4-5.0); Bilirubin, Total 1.1 mg/dL (0.2-1.0); Magnesium 2.9 mg/dL (1.6-2.6); Total Protein 5.4 g/dL (6.4-8.2)
[2020-06-18 08:07] LABS: Blood Urea Nitrogen 84 mg/dL (7-18)
[2020-06-18] MEDS: FAMOTIDINE (10MG/ML) 2ML VL IV SCH ×2 (08:31→22:43)
[2020-06-18] MEDS: ZINC SULFATE 220mg CAP or TAB PO SCH (08:31)
[2020-06-18] MEDS: ENOXAPARIN SOD 40 MG/0.4 ML SYRINGE SC SCH ×2 (08:31→22:44)
[2020-06-18] MEDS: CEFEPIME 1 GM in SODIUM CHL 0.9% 50 ML IV SCH (08:31)
[2020-06-18] MEDS: CHOLECALCIFEROL (VITD3) 2,000 UNIT CAP/TAB PO SCH (08:31)
[2020-06-18] MEDS: MULTIPLE VITAMIN TAB PO SCH (08:31)
[2020-06-18] MEDS: ASCORBIC ACID 1,000 MG TAB PO SCH (08:31)
[2020-06-18 10:15] VITALS: BP 112/68
[2020-06-18] MEDS ORDERED: SOD CHL 0.45% 1,000 ML IV ONE (12:15)
[2020-06-18] MEDS: FREE WATER GT SCH ×3 (13:16→22:43)
[2020-06-18] MEDS: fentaNYL Drip 2500mCg/250mlNS 250 ML IV SCH (13:21)
[2020-06-18] MEDS: MIDAZOLAM DRIP 50 mg/50mL 50 ML IV SCH (13:22)
[2020-06-18] MEDS: PROPOFOL 100 ML IV SCH (13:22)
[2020-06-18] MEDS ORDERED: DexAMETHasone SOD PHOS 10MG/1ML VIAL INJ IV ONE (13:45)
[2020-06-18] MEDS ORDERED: SODIUM CHLORIDE 0.9% 1,000 ML IV SCH (13:45)
[2020-06-18 13:58] VITALS: BP 117/75
[2020-06-18] MEDS ORDERED: metroNIDAZOLE 500MG/100ML 100 ML IV SCH (14:00)
[2020-06-18] MEDS ORDERED: FUROSEMIDE 40 MG/4 ML VIAL IV ONE (14:00)
[2020-06-18] MEDS: NOREPINEPHRINE 8 MG/250ML KIT 250 ML IV SCH (16:15)
[2020-06-18] MEDS: SOD CHL 0.45% 1,000 ML IV SCH (16:21)
[2020-06-18 19:23] VITALS: BP 107/65
[2020-06-18 22:40] VITALS: BP 112/66
[2020-06-19] VITALS (7 sets, daily range): BP systolic 122–206; BP diastolic 68–99
[2020-06-19] MEDS: FREE WATER GT SCH ×6 (02:12→22:30)
[2020-06-19] MEDS: SOD CHL 0.45% 1,000 ML IV SCH (06:02)
[2020-06-19 06:21] LABS: Basophils # (auto) 0 10 ^3/uL (0-0.2); Basophils % (auto) 0.2 % (0.0-2.0); Eosinophils # (auto) 0 10 ^3/uL (0-0.8); Hematocrit 40.4 % (41.0-53.0); Hemoglobin 13.6 g/dL (13.5-17.5); Lymphocytes # (auto) 0.3 10 ^3/uL (0.4-5.4); Lymphocytes % (auto) 2.5 % (10.0-50.0); Mean Corpuscular Hemoglobin 33.1 pg (28.0-32.0); Mean Corpuscular Hgb Conc. 33.5 g/dL (32.0-36.0); Mean Corpuscular Volume 98.6 fL (80.0-100.0); Monocytes # (auto) 0.3 10 ^3/uL (0-1.3); Monocytes % (auto) 2.4 % (0.0-12.0); Neutrophils # (auto) 12.4 10 ^3/uL (1.6-8.6); Neutrophils % (auto) 94.9 % (37.0-80.0); Red Cell Distribution Width 14.3 % (11.8-14.3); White Blood Cell 13.1 10^3/uL (4.4-10.8)
[2020-06-19] MEDS: ACCU-CHEK COMFORT CURVE STRIP VI SCH ×4 (06:42→22:08)
[2020-06-19 06:43] LABS: Albumin 2.7 g/dL (3.4-5.0); BUN/Creatinine Ratio 61.7; Bilirubin, Total 1.2 mg/dL (0.2-1.0); CRP High Sensitivity 0.39 mg/dL (< 0.3); Calcium 8.4 mg/dL (8.5-10.1); Total Protein 5.6 g/dL (6.4-8.2)
[2020-06-19] MEDS: InsuLIN REG 1unit/0.01ml Soln (100units/ml) SC SCH ×4 (06:43→22:05)
[2020-06-19] MEDS: PROPOFOL 100 ML IV SCH (08:00)
[2020-06-19] MEDS: fentaNYL Drip 2500mCg/250mlNS 250 ML IV SCH (08:00)
[2020-06-19] MEDS ORDERED: FUROSEMIDE 40 MG/4 ML VIAL IV SCH (10:00)
[2020-06-19] MEDS ORDERED: DexAMETHasone SOD PHOS 10MG/1ML VIAL INJ IV SCH (10:00)
[2020-06-19] MEDS ORDERED: levoFLOXacin 500MG 100 ML IV SCH (10:00)
[2020-06-19] MEDS: FAMOTIDINE (10MG/ML) 2ML VL IV SCH ×2 (10:04→22:30)
[2020-06-19] MEDS: ZINC SULFATE 220mg CAP or TAB PO SCH (10:05)
[2020-06-19] MEDS: ASCORBIC ACID 1,000 MG TAB PO SCH (10:05)
[2020-06-19] MEDS: CHOLECALCIFEROL (VITD3) 2,000 UNIT CAP/TAB PO SCH (10:05)
[2020-06-19] MEDS: MULTIPLE VITAMIN TAB PO SCH (10:05)
[2020-06-19] MEDS: ENOXAPARIN SOD 40 MG/0.4 ML SYRINGE SC SCH ×2 (10:05→22:30)
[2020-06-19] MEDS ORDERED: SODIUM ZIRCONIUM CYCL 10 GM PAK PO ONE (13:00)
[2020-06-19] MEDS: MIDAZOLAM DRIP 50 mg/50mL 50 ML IV SCH ×2 (14:15→15:59)
[2020-06-19] MEDS: NOREPINEPHRINE 8 MG/250ML KIT 250 ML IV SCH (16:15)
[2020-06-19] MEDS ORDERED: Glucerna 1.2 Cal 1Liter BOTTLE GT SCH (18:45)
[2020-06-19] MEDS ORDERED: amLODIPine BESYLATE 5 MG TAB NG ONE (18:45)
[2020-06-19] MEDS ORDERED: hydrALAZINE HCL 20 MG/ML VL IV PRN (18:45)
[2020-06-19] MEDS: LABETALOL HCL 5 MG/ML 4ML SYRINGE IV PRN ×2 (18:46→22:40)
[2020-06-20] MEDS: FREE WATER GT SCH ×6 (02:06→22:00)
[2020-06-20 02:10] VITALS: BP 159/90
[2020-06-20] MEDS: InsuLIN REG 1unit/0.01ml Soln (100units/ml) SC SCH ×4 (06:47→22:00)
[2020-06-20 07:00] VITALS: BP 158/91
[2020-06-20] MEDS: ACCU-CHEK COMFORT CURVE STRIP VI SCH ×4 (07:02→22:00)
[2020-06-20 07:35] LABS: Potassium 4.9 mmol/L (3.5-5.1)
[2020-06-20 07:40] LABS: Basophils # (auto) 0.1 10 ^3/uL (0-0.2); Basophils % (auto) 0.5 % (0.0-2.0); Eosinophils # (auto) 0 10 ^3/uL (0-0.8); Eosinophils % (auto) 0.1 % (0.0-7.0); Hematocrit 47.4 % (41.0-53.0); Lymphocytes # (auto) 0.4 10 ^3/uL (0.4-5.4); Lymphocytes % (auto) 1.7 % (10.0-50.0); Mean Corpuscular Hemoglobin 33.2 pg (28.0-32.0); Mean Corpuscular Hgb Conc. 33.7 g/dL (32.0-36.0); Mean Corpuscular Volume 98.6 fL (80.0-100.0); Monocytes # (auto) 0.6 10 ^3/uL (0-1.3); Monocytes % (auto) 2.8 % (0.0-12.0); Neutrophils # (auto) 19.9 10 ^3/uL (1.6-8.6); Neutrophils % (auto) 94.9 % (37.0-80.0); Red Cell Distribution Width 14.4 % (11.8-14.3)
[2020-06-20 07:56] LABS: Albumin 2.9 g/dL (3.4-5.0); BUN/Creatinine Ratio 55.1; Bilirubin, Total 1.4 mg/dL (0.2-1.0); Calcium 8.9 mg/dL (8.5-10.1); Total Protein 6.2 g/dL (6.4-8.2)
[2020-06-20] MEDS: CHOLECALCIFEROL (VITD3) 2,000 UNIT CAP/TAB PO SCH (10:00)
[2020-06-20] MEDS: ASCORBIC ACID 1,000 MG TAB PO SCH (10:00)
[2020-06-20] MEDS: FAMOTIDINE (10MG/ML) 2ML VL IV SCH ×2 (10:00→22:00)
[2020-06-20] MEDS ORDERED: amLODIPine BESYLATE 5 MG TAB GT SCH (10:00)
[2020-06-20] MEDS: MULTIPLE VITAMIN TAB PO SCH (10:00)
[2020-06-20] MEDS: ENOXAPARIN SOD 40 MG/0.4 ML SYRINGE SC SCH ×2 (10:00→22:00)
[2020-06-20] MEDS: ZINC SULFATE 220mg CAP or TAB PO SCH (10:00)
[2020-06-20] MEDS ORDERED: levoFLOXacin 750MG 150 ML IV ONE (10:30)
[2020-06-20 13:50] VITALS: BP 143/83
[2020-06-20] MEDS: PROPOFOL 100 ML IV SCH (14:15)
[2020-06-20] MEDS: fentaNYL Drip 2500mCg/250mlNS 250 ML IV SCH (14:15)
[2020-06-20] MEDS: NOREPINEPHRINE 8 MG/250ML KIT 250 ML IV SCH (14:34)
[2020-06-20 18:50] VITALS: BP 167/92
[2020-06-20] MEDS: SODIUM CHLORIDE 0.9% 1,000 ML IV SCH (21:30)
[2020-06-20] MEDS: MEROPENEM 1GM IVPB 100 ML IV SCH (22:00)
[2020-06-21] MEDS: FREE WATER GT SCH ×2 (02:00→06:00)
[2020-06-21 02:30] VITALS: BP 146/75
[2020-06-21] MEDS: LABETALOL HCL 5 MG/ML 4ML SYRINGE IV PRN ×3 (03:30→17:45)
[2020-06-21 06:10] VITALS: BP 178/86
[2020-06-21] MEDS: ACCU-CHEK COMFORT CURVE STRIP VI SCH ×4 (06:49→22:00)
[2020-06-21] MEDS: InsuLIN REG 1unit/0.01ml Soln (100units/ml) SC SCH ×4 (06:52→22:00)
[2020-06-21 07:44] LABS: Basophils # (auto) 0.2 10 ^3/uL (0-0.2); Eosinophils # (auto) 0 10 ^3/uL (0-0.8); Eosinophils % (auto) 0.1 % (0.0-7.0); Hematocrit 44.5 % (41.0-53.0); Lymphocytes # (auto) 0.4 10 ^3/uL (0.4-5.4); Lymphocytes % (auto) 2.6 % (10.0-50.0); Mean Corpuscular Hgb Conc. 33.6 g/dL (32.0-36.0); Mean Corpuscular Volume 98.2 fL (80.0-100.0); Monocytes # (auto) 0.9 10 ^3/uL (0-1.3); Monocytes % (auto) 5.5 % (0.0-12.0); Neutrophils # (auto) 15.2 10 ^3/uL (1.6-8.6); Neutrophils % (auto) 90.8 % (37.0-80.0); Nucleated Red Blood Cells % 0.1 %; Red Blood Cells 4.53 10^6/uL (4.5-5.90); Red Cell Distribution Width 14.4 % (11.8-14.3); White Blood Cell 16.8 10^3/uL (4.4-10.8)
[2020-06-21] MEDS: SODIUM CHLORIDE 0.9% 1,000 ML IV SCH (07:53)
[2020-06-21 08:01] LABS: Albumin 2.5 g/dL (3.4-5.0); Calcium 8.1 mg/dL (8.5-10.1); Potassium 4.2 mmol/L (3.5-5.1)
[2020-06-21 08:06] LABS: BUN/Creatinine Ratio 53.8; Bilirubin, Total 1.4 mg/dL (0.2-1.0); Total Protein 5.4 g/dL (6.4-8.2)
[2020-06-21] MEDS: ZINC SULFATE 220mg CAP or TAB PO SCH (09:17)
[2020-06-21] MEDS: MEROPENEM 1GM IVPB 100 ML IV SCH ×2 (09:17→22:00)
[2020-06-21] MEDS: FAMOTIDINE (10MG/ML) 2ML VL IV SCH ×2 (09:17→22:00)
[2020-06-21] MEDS: ASCORBIC ACID 1,000 MG TAB PO SCH (09:18)
[2020-06-21] MEDS: MULTIPLE VITAMIN TAB PO SCH (09:18)
[2020-06-21] MEDS: CHOLECALCIFEROL (VITD3) 2,000 UNIT CAP/TAB PO SCH (09:19)
[2020-06-21] MEDS: ENOXAPARIN SOD 40 MG/0.4 ML SYRINGE SC SCH ×2 (09:19→22:00)
[2020-06-21] MEDS: fentaNYL Drip 2500mCg/250mlNS 250 ML IV SCH (09:49)
[2020-06-21] MEDS: PROPOFOL 100 ML IV SCH (09:50)
[2020-06-21] MEDS: MIDAZOLAM DRIP 50 mg/50mL 50 ML IV SCH ×2 (09:51→21:15)
[2020-06-21] MEDS ORDERED: amLODIPine BESYLATE 5 MG TAB PO SCH (10:00)
[2020-06-21] MEDS ORDERED: levoFLOXacin 750MG 150 ML IV SCH (10:00)
[2020-06-21] MEDS ORDERED: cloNIDine HCL 0.1 MG TAB PO ONE (12:15)
[2020-06-21 13:50] VITALS: BP 108/68
[2020-06-21] MEDS: NOREPINEPHRINE 8 MG/250ML KIT 250 ML IV SCH (16:15)
[2020-06-21] MEDS: ACETAMINOPHEN 500 MG TAB PO PRN (17:24)
[2020-06-21 18:45] VITALS: BP 108/68
[2020-06-21] MEDS: LINEZOLID 600MG/300ML 300 ML IV SCH (20:00)
[2020-06-22] VITALS (25 sets, daily range): BP systolic 103–166; BP diastolic 61–89
[2020-06-22] MEDS: MIDAZOLAM DRIP 50 mg/50mL 50 ML IV SCH ×2 (00:45→05:30)
[2020-06-22] MEDS: MEROPENEM 1GM IVPB 100 ML IV SCH ×2 (06:00→22:07)
[2020-06-22] MEDS: ACCU-CHEK COMFORT CURVE STRIP VI SCH ×3 (06:26→21:55)
[2020-06-22] MEDS: InsuLIN REG 1unit/0.01ml Soln (100units/ml) SC SCH ×4 (07:00→21:55)
[2020-06-22] MEDS: LINEZOLID 600MG/300ML 300 ML IV SCH ×2 (08:00→20:00)
[2020-06-22 08:28] LABS: Basophils # (auto) 0 10 ^3/uL (0-0.2); Basophils % (auto) 0.1 % (0.0-2.0); Eosinophils # (auto) 0.1 10 ^3/uL (0-0.8); Eosinophils % (auto) 0.5 % (0.0-7.0); Hematocrit 41.7 % (41.0-53.0); Hemoglobin 14.1 g/dL (13.5-17.5); Lymphocytes # (auto) 0.8 10 ^3/uL (0.4-5.4); Lymphocytes % (auto) 4.9 % (10.0-50.0); Mean Corpuscular Hemoglobin 33.5 pg (28.0-32.0); Mean Corpuscular Hgb Conc. 33.8 g/dL (32.0-36.0); Mean Corpuscular Volume 98.9 fL (80.0-100.0); Monocytes % (auto) 6.3 % (0.0-12.0); Neutrophils # (auto) 14.4 10 ^3/uL (1.6-8.6); Neutrophils % (auto) 88.2 % (37.0-80.0); Red Blood Cells 4.22 10^6/uL (4.5-5.90); Red Cell Distribution Width 13.9 % (11.8-14.3); White Blood Cell 16.3 10^3/uL (4.4-10.8)
[2020-06-22 08:58] LABS: Albumin 2.4 g/dL (3.4-5.0); BUN/Creatinine Ratio 52.5; Bilirubin, Total 1.6 mg/dL (0.2-1.0)
[2020-06-22] MEDS: amLODIPine BESYLATE 5 MG TAB GT SCH (10:00)
[2020-06-22] MEDS: ENOXAPARIN SOD 40 MG/0.4 ML SYRINGE SC SCH ×2 (10:00→21:54)
[2020-06-22] MEDS: MULTIPLE VITAMIN TAB PO SCH (10:00)
[2020-06-22] MEDS: FAMOTIDINE (10MG/ML) 2ML VL IV SCH ×2 (10:00→21:54)
[2020-06-22] MEDS: ZINC SULFATE 220mg CAP or TAB PO SCH (10:00)
[2020-06-22] MEDS: CHOLECALCIFEROL (VITD3) 2,000 UNIT CAP/TAB PO SCH (10:00)
[2020-06-22] MEDS: ASCORBIC ACID 1,000 MG TAB PO SCH (10:00)
[2020-06-22] MEDS: PROPOFOL 100 ML IV SCH (14:15)
[2020-06-22] MEDS: fentaNYL Drip 2500mCg/250mlNS 250 ML IV SCH (15:30)
[2020-06-22] MEDS: NOREPINEPHRINE 8 MG/250ML KIT 250 ML IV SCH (16:15)
[2020-06-23] VITALS (89 sets, daily range): BP systolic 102–177; BP diastolic 58–88
[2020-06-23 04:48] LABS: Albumin 2.4 g/dL (3.4-5.0); Calcium 8.1 mg/dL (8.5-10.1)
[2020-06-23 04:53] LABS: Bilirubin, Total 1.4 mg/dL (0.2-1.0); Total Protein 4.9 g/dL (6.4-8.2)
[2020-06-23] MEDS: MEROPENEM 1GM IVPB 100 ML IV SCH ×3 (06:14→22:11)
[2020-06-23] MEDS ORDERED: ATO40T PO (06:32)
[2020-06-23] MEDS ORDERED: LISI-275 PO (06:32)
[2020-06-23] MEDS ORDERED: ASPI-543 PO (06:32)
[2020-06-23] MEDS ORDERED: METO-158 PO (06:32)
[2020-06-23] MEDS: ACCU-CHEK COMFORT CURVE STRIP VI SCH ×4 (06:33→22:11)
[2020-06-23] MEDS: InsuLIN REG 1unit/0.01ml Soln (100units/ml) SC SCH ×4 (06:33→22:12)
[2020-06-23] MEDS: MIDAZOLAM DRIP 50 mg/50mL 50 ML IV SCH (06:42)
[2020-06-23] MEDS: LINEZOLID 600MG/300ML 300 ML IV SCH ×2 (08:18→19:45)
[2020-06-23] MEDS ORDERED: CHOLECALCIFEROL (VITD3) 1,000UNIT=25mCg TAB ONE (09:14)
[2020-06-23] MEDS: amLODIPine BESYLATE 5 MG TAB GT SCH (10:00)
[2020-06-23] MEDS ORDERED: CHOLECALCIFEROL (VITD3) 1,000UNIT=25mCg TAB PO SCH (10:00)
[2020-06-23] MEDS: ASCORBIC ACID 1,000 MG TAB PO SCH (10:15)
[2020-06-23] MEDS: ZINC SULFATE 220mg CAP or TAB PO SCH (10:15)
[2020-06-23] MEDS: FAMOTIDINE (10MG/ML) 2ML VL IV SCH ×2 (10:15→22:11)
[2020-06-23] MEDS: MULTIPLE VITAMIN TAB PO SCH (10:15)
[2020-06-23] MEDS: ENOXAPARIN SOD 40 MG/0.4 ML SYRINGE SC SCH ×2 (10:15→22:11)
[2020-06-23] MEDS: CHOLECALCIFEROL (VITD3) 1,000UNIT=25mCg TAB PO SCH (10:30)
[2020-06-23] MEDS: PROPOFOL 100 ML IV SCH (14:15)
[2020-06-23] MEDS: fentaNYL Drip 2500mCg/250mlNS 250 ML IV SCH (15:30)
[2020-06-23] MEDS: NOREPINEPHRINE 8 MG/250ML KIT 250 ML IV SCH (16:15)
[2020-06-23] MEDS: LABETALOL HCL 5 MG/ML 4ML SYRINGE IV PRN (21:15)
[2020-06-24] VITALS (94 sets, daily range): BP systolic 103–210; BP diastolic 40–126
[2020-06-24] MEDS: MORPHINE SULFATE 4 MG/ML SYR/VIAL IV PRN (00:11)
[2020-06-24] MEDS: MEROPENEM 1GM IVPB 100 ML IV SCH ×3 (05:51→22:23)
[2020-06-24 06:00] LABS: Basophils # (auto) 0 10 ^3/uL (0-0.2); Basophils % (auto) 0.1 % (0.0-2.0); Eosinophils # (auto) 0.2 10 ^3/uL (0-0.8); Eosinophils % (auto) 1.1 % (0.0-7.0); Hematocrit 39.2 % (41.0-53.0); Hemoglobin 13.3 g/dL (13.5-17.5); Lymphocytes # (auto) 0.5 10 ^3/uL (0.4-5.4); Lymphocytes % (auto) 3.5 % (10.0-50.0); Mean Corpuscular Hemoglobin 33.4 pg (28.0-32.0); Mean Corpuscular Volume 98.4 fL (80.0-100.0); Monocytes # (auto) 0.6 10 ^3/uL (0-1.3); Monocytes % (auto) 4.3 % (0.0-12.0); Neutrophils # (auto) 12.9 10 ^3/uL (1.6-8.6); Nucleated Red Blood Cells % 0.1 %; Red Blood Cells 3.98 10^6/uL (4.5-5.90); Red Cell Distribution Width 13.9 % (11.8-14.3); White Blood Cell 14.2 10^3/uL (4.4-10.8)
[2020-06-24 06:05] LABS: Albumin 2.4 g/dL (3.4-5.0); Calcium 8.2 mg/dL (8.5-10.1); Potassium 3.8 mmol/L (3.5-5.1)
[2020-06-24 06:07] LABS: BUN/Creatinine Ratio 46.4; Bilirubin, Total 1.4 mg/dL (0.2-1.0); Total Protein 4.8 g/dL (6.4-8.2)
[2020-06-24] MEDS: ACCU-CHEK COMFORT CURVE STRIP VI SCH ×4 (06:30→22:23)
[2020-06-24] MEDS: InsuLIN REG 1unit/0.01ml Soln (100units/ml) SC SCH ×5 (06:31→23:01)
[2020-06-24] MEDS: LINEZOLID 600MG/300ML 300 ML IV SCH ×2 (07:46→20:00)
[2020-06-24] MEDS: MULTIPLE VITAMIN TAB PO SCH (07:48)
[2020-06-24] MEDS: ASCORBIC ACID 1,000 MG TAB PO SCH (07:48)
[2020-06-24] MEDS: ZINC SULFATE 220mg CAP or TAB PO SCH (07:48)
[2020-06-24] MEDS: FAMOTIDINE (10MG/ML) 2ML VL IV SCH ×2 (07:48→22:23)
[2020-06-24] MEDS: amLODIPine BESYLATE 5 MG TAB GT SCH (07:48)
[2020-06-24] MEDS: CHOLECALCIFEROL (VITD3) 1,000UNIT=25mCg TAB PO SCH (07:49)
[2020-06-24] MEDS: ENOXAPARIN SOD 40 MG/0.4 ML SYRINGE SC SCH ×2 (07:50→22:23)
[2020-06-24] MEDS ORDERED: POTASSIUM EFFERVESENT TAB 25 MEQ GT ONE (08:45)
[2020-06-24] MEDS ORDERED: FUROSEMIDE 40 MG/4 ML VIAL IV ONE (08:45)
[2020-06-24] MEDS: PROPOFOL 100 ML IV SCH (14:15)
[2020-06-24] MEDS: MIDAZOLAM DRIP 50 mg/50mL 50 ML IV SCH (14:15)
[2020-06-24] MEDS: fentaNYL Drip 2500mCg/250mlNS 250 ML IV SCH (15:30)
[2020-06-24] MEDS: NOREPINEPHRINE 8 MG/250ML KIT 250 ML IV SCH (16:15)
[2020-06-24] MEDS: LABETALOL HCL 5 MG/ML 4ML SYRINGE IV PRN (23:13)
[2020-06-25] VITALS (94 sets, daily range): BP systolic 95–211; BP diastolic 55–109
[2020-06-25] MEDS: MORPHINE SULFATE 4 MG/ML SYR/VIAL IV PRN ×2 (00:30→04:30)
[2020-06-25] MEDS: LORazepam 2MG/ML-1ML VIAL IV PRN ×3 (01:00→23:07)
[2020-06-25] MEDS: MEROPENEM 1GM IVPB 100 ML IV SCH ×3 (06:06→22:06)
[2020-06-25 06:29] LABS: Basophils # (auto) 0 10 ^3/uL (0-0.2); Basophils % (auto) 0.1 % (0.0-2.0); Eosinophils # (auto) 0.2 10 ^3/uL (0-0.8); Eosinophils % (auto) 1.9 % (0.0-7.0); Hematocrit 40.2 % (41.0-53.0); Hemoglobin 13.9 g/dL (13.5-17.5); Lymphocytes # (auto) 0.6 10 ^3/uL (0.4-5.4); Lymphocytes % (auto) 5.1 % (10.0-50.0); Mean Corpuscular Hemoglobin 33.7 pg (28.0-32.0); Mean Corpuscular Hgb Conc. 34.5 g/dL (32.0-36.0); Mean Corpuscular Volume 97.5 fL (80.0-100.0); Monocytes # (auto) 0.4 10 ^3/uL (0-1.3); Monocytes % (auto) 3.5 % (0.0-12.0); Neutrophils # (auto) 9.8 10 ^3/uL (1.6-8.6); Neutrophils % (auto) 89.4 % (37.0-80.0); Red Blood Cells 4.12 10^6/uL (4.5-5.90); Red Cell Distribution Width 13.7 % (11.8-14.3); White Blood Cell 10.9 10^3/uL (4.4-10.8)
[2020-06-25 06:40] LABS: Albumin 2.5 g/dL (3.4-5.0); BUN/Creatinine Ratio 45.7; Calcium 8.1 mg/dL (8.5-10.1); Potassium 3.4 mmol/L (3.5-5.1)
[2020-06-25] MEDS: ACCU-CHEK COMFORT CURVE STRIP VI SCH ×4 (06:41→22:06)
[2020-06-25] MEDS: InsuLIN REG 1unit/0.01ml Soln (100units/ml) SC SCH ×4 (06:41→22:00)
[2020-06-25 06:44] LABS: Bilirubin, Total 1.6 mg/dL (0.2-1.0)
[2020-06-25] MEDS: LINEZOLID 600MG/300ML 300 ML IV SCH ×2 (08:00→20:00)
[2020-06-25] MEDS ORDERED: POTASSIUM EFFERVESENT TAB 25 MEQ GT ONE (08:30)
[2020-06-25] MEDS: FAMOTIDINE (10MG/ML) 2ML VL IV SCH ×2 (10:00→22:06)
[2020-06-25] MEDS: MULTIPLE VITAMIN TAB PO SCH (10:00)
[2020-06-25] MEDS: ASCORBIC ACID 1,000 MG TAB PO SCH (10:00)
[2020-06-25] MEDS: ENOXAPARIN SOD 40 MG/0.4 ML SYRINGE SC SCH ×2 (10:00→22:06)
[2020-06-25] MEDS: CHOLECALCIFEROL (VITD3) 1,000UNIT=25mCg TAB PO SCH (10:00)
[2020-06-25] MEDS: ZINC SULFATE 220mg CAP or TAB PO SCH (10:00)
[2020-06-25] MEDS: amLODIPine BESYLATE 5 MG TAB GT SCH (10:00)
[2020-06-25] MEDS: MIDAZOLAM DRIP 50 mg/50mL 50 ML IV SCH (14:15)
[2020-06-25] MEDS: PROPOFOL 100 ML IV SCH (14:15)
[2020-06-25] MEDS: fentaNYL Drip 2500mCg/250mlNS 250 ML IV SCH (14:59)
[2020-06-25] MEDS: NOREPINEPHRINE 8 MG/250ML KIT 250 ML IV SCH (16:15)
[2020-06-25] MEDS: LABETALOL HCL 5 MG/ML 4ML SYRINGE IV PRN ×2 (16:55→23:07)
[2020-06-25] MEDS: MORPHINE SULFATE INJECTION 2 MG/ML SYRG IV PRN ×2 (16:55→23:07)
[2020-06-25] MEDS: cloNIDine HCL 0.1 MG TAB PO PRN (16:56)
[2020-06-26] VITALS (95 sets, daily range): BP systolic 85–188; BP diastolic 52–108
[2020-06-26] MEDS: MEROPENEM 1GM IVPB 100 ML IV SCH ×2 (05:28→14:00)
[2020-06-26] MEDS: InsuLIN REG 1unit/0.01ml Soln (100units/ml) SC SCH ×4 (06:07→22:00)
[2020-06-26] MEDS: ACCU-CHEK COMFORT CURVE STRIP VI SCH ×4 (06:07→21:18)
[2020-06-26] MEDS: cloNIDine HCL 0.1 MG TAB PO PRN (07:04)
[2020-06-26] MEDS: LABETALOL HCL 5 MG/ML 4ML SYRINGE IV PRN (07:04)
[2020-06-26] MEDS: LINEZOLID 600MG/300ML 300 ML IV SCH (08:00)
[2020-06-26] MEDS: FAMOTIDINE (10MG/ML) 2ML VL IV SCH ×2 (09:40→21:18)
[2020-06-26] MEDS: amLODIPine BESYLATE 5 MG TAB GT SCH (09:40)
[2020-06-26] MEDS: MULTIPLE VITAMIN TAB PO SCH (09:41)
[2020-06-26] MEDS: ASCORBIC ACID 1,000 MG TAB PO SCH (09:41)
[2020-06-26] MEDS: CHOLECALCIFEROL (VITD3) 1,000UNIT=25mCg TAB PO SCH (09:41)
[2020-06-26] MEDS: ENOXAPARIN SOD 40 MG/0.4 ML SYRINGE SC SCH ×2 (09:41→21:19)
[2020-06-26] MEDS: ZINC SULFATE 220mg CAP or TAB PO SCH (09:41)
[2020-06-26] MEDS: LORazepam 2MG/ML-1ML VIAL IV PRN ×2 (14:07→19:01)
[2020-06-26] MEDS: PROPOFOL 100 ML IV SCH (14:15)
[2020-06-26] MEDS: MIDAZOLAM DRIP 50 mg/50mL 50 ML IV SCH (14:15)
[2020-06-26] MEDS: fentaNYL Drip 2500mCg/250mlNS 250 ML IV SCH (15:00)
[2020-06-26] MEDS: NOREPINEPHRINE 8 MG/250ML KIT 250 ML IV SCH (16:15)
[2020-06-26] MEDS: MORPHINE SULFATE 4 MG/ML SYR/VIAL IV PRN (19:01)
[2020-06-26] MEDS: CEFEPIME 1 GM in SODIUM CHL 0.9% 50 ML IV SCH (21:18)
[2020-06-27] VITALS (79 sets, daily range): BP systolic 72–165; BP diastolic 50–102
[2020-06-27 04:48] LABS: Basophils # (auto) 0.1 10 ^3/uL (0-0.2); Basophils % (auto) 0.6 % (0.0-2.0); Eosinophils # (auto) 0.2 10 ^3/uL (0-0.8); Eosinophils % (auto) 2.4 % (0.0-7.0); Hematocrit 42.9 % (41.0-53.0); Hemoglobin 14.9 g/dL (13.5-17.5); Lymphocytes # (auto) 0.6 10 ^3/uL (0.4-5.4); Lymphocytes % (auto) 6.1 % (10.0-50.0); Mean Corpuscular Hemoglobin 33.8 pg (28.0-32.0); Mean Corpuscular Hgb Conc. 34.6 g/dL (32.0-36.0); Mean Corpuscular Volume 97.6 fL (80.0-100.0); Monocytes # (auto) 0.6 10 ^3/uL (0-1.3); Monocytes % (auto) 5.4 % (0.0-12.0); Neutrophils # (auto) 8.7 10 ^3/uL (1.6-8.6); Neutrophils % (auto) 85.5 % (37.0-80.0); Red Blood Cells 4.39 10^6/uL (4.5-5.90); Red Cell Distribution Width 13.9 % (11.8-14.3); White Blood Cell 10.2 10^3/uL (4.4-10.8)
[2020-06-27 05:08] LABS: Potassium 4.4 mmol/L (3.5-5.1)
[2020-06-27 05:22] LABS: Albumin 2.5 g/dL (3.4-5.0); BUN/Creatinine Ratio 39.6; Bilirubin, Total 1.9 mg/dL (0.2-1.0); Phosphorus 2.9 mg/dL (2.5-4.90); Total Protein 5.7 g/dL (6.4-8.2)
[2020-06-27] MEDS: InsuLIN REG 1unit/0.01ml Soln (100units/ml) SC SCH ×3 (05:50→21:59)
[2020-06-27] MEDS: CEFEPIME 1 GM in SODIUM CHL 0.9% 50 ML IV SCH ×3 (05:50→21:58)
[2020-06-27] MEDS: ACCU-CHEK COMFORT CURVE STRIP VI SCH ×4 (05:52→21:10)
[2020-06-27] MEDS: FAMOTIDINE (10MG/ML) 2ML VL IV SCH ×2 (10:00→21:58)
[2020-06-27] MEDS: ZINC SULFATE 220mg CAP or TAB PO SCH (10:00)
[2020-06-27] MEDS: MULTIPLE VITAMIN TAB PO SCH (10:01)
[2020-06-27] MEDS: ASCORBIC ACID 1,000 MG TAB PO SCH (10:02)
[2020-06-27] MEDS: CHOLECALCIFEROL (VITD3) 1,000UNIT=25mCg TAB PO SCH (10:02)
[2020-06-27] MEDS: ENOXAPARIN SOD 40 MG/0.4 ML SYRINGE SC SCH ×2 (10:03→21:59)
[2020-06-27] MEDS: amLODIPine BESYLATE 5 MG TAB GT SCH (10:05)
[2020-06-27] MEDS: LABETALOL HCL 5 MG/ML 4ML SYRINGE IV PRN (13:00)
[2020-06-27] MEDS ORDERED: FUROSEMIDE 40 MG/4 ML VIAL IV ONE (13:15)
[2020-06-27] MEDS: PROPOFOL 100 ML IV SCH (14:15)
[2020-06-27] MEDS: MIDAZOLAM DRIP 50 mg/50mL 50 ML IV SCH ×2 (14:15→21:10)
[2020-06-27] MEDS: fentaNYL Drip 2500mCg/250mlNS 250 ML IV SCH (15:30)
[2020-06-27] MEDS: NOREPINEPHRINE 8 MG/250ML KIT 250 ML IV SCH (16:15)
[2020-06-27] MEDS: MORPHINE SULFATE INJECTION 2 MG/ML SYRG IV PRN (23:21)
[2020-06-27] MEDS: LORazepam 2MG/ML-1ML VIAL IV PRN (23:21)
[2020-06-28] VITALS (87 sets, daily range): BP systolic 95–170; BP diastolic 62–105
[2020-06-28] MEDS: LORazepam 2MG/ML-1ML VIAL IV PRN (01:04)
[2020-06-28] MEDS: MORPHINE SULFATE 4 MG/ML SYR/VIAL IV PRN (01:05)
[2020-06-28 04:36] LABS: Basophils # (auto) 0 10 ^3/uL (0-0.2); Basophils % (auto) 0.3 % (0.0-2.0); Eosinophils # (auto) 0.5 10 ^3/uL (0-0.8); Eosinophils % (auto) 4.2 % (0.0-7.0); Hematocrit 44.3 % (41.0-53.0); Hemoglobin 15.3 g/dL (13.5-17.5); Lymphocytes # (auto) 0.6 10 ^3/uL (0.4-5.4); Lymphocytes % (auto) 5.9 % (10.0-50.0); Mean Corpuscular Hemoglobin 33.6 pg (28.0-32.0); Mean Corpuscular Hgb Conc. 34.5 g/dL (32.0-36.0); Mean Corpuscular Volume 97.4 fL (80.0-100.0); Monocytes # (auto) 0.8 10 ^3/uL (0-1.3); Monocytes % (auto) 7.1 % (0.0-12.0); Neutrophils # (auto) 8.9 10 ^3/uL (1.6-8.6); Neutrophils % (auto) 82.5 % (37.0-80.0); Nucleated Red Blood Cells % 0.1 %; Red Blood Cells 4.55 10^6/uL (4.5-5.90); Red Cell Distribution Width 14.1 % (11.8-14.3); White Blood Cell 10.8 10^3/uL (4.4-10.8)
[2020-06-28 04:56] LABS: Albumin 2.8 g/dL (3.4-5.0); Calcium 8.3 mg/dL (8.5-10.1); Potassium 3.7 mmol/L (3.5-5.1)
[2020-06-28 05:00] LABS: BUN/Creatinine Ratio 48.8; Bilirubin, Total 1.6 mg/dL (0.2-1.0)
[2020-06-28] MEDS: InsuLIN REG 1unit/0.01ml Soln (100units/ml) SC SCH ×5 (06:00→22:00)
[2020-06-28] MEDS: CEFEPIME 1 GM in SODIUM CHL 0.9% 50 ML IV SCH ×3 (06:13→22:17)
[2020-06-28] MEDS: ACCU-CHEK COMFORT CURVE STRIP VI SCH ×4 (06:16→22:00)
[2020-06-28] MEDS: MIDAZOLAM DRIP 50 mg/50mL 50 ML IV SCH (08:30)
[2020-06-28] MEDS: MULTIPLE VITAMIN TAB PO SCH (10:00)
[2020-06-28] MEDS: amLODIPine BESYLATE 5 MG TAB GT SCH (10:00)
[2020-06-28] MEDS: ENOXAPARIN SOD 40 MG/0.4 ML SYRINGE SC SCH ×2 (10:00→22:18)
[2020-06-28] MEDS: ASCORBIC ACID 1,000 MG TAB PO SCH (10:00)
[2020-06-28] MEDS: CHOLECALCIFEROL (VITD3) 1,000UNIT=25mCg TAB PO SCH (10:00)
[2020-06-28] MEDS: FAMOTIDINE (10MG/ML) 2ML VL IV SCH ×2 (10:00→22:17)
[2020-06-28] MEDS: ZINC SULFATE 220mg CAP or TAB PO SCH (10:00)
[2020-06-28] MEDS: LABETALOL HCL 5 MG/ML 4ML SYRINGE IV PRN ×2 (16:15→22:23)
[2020-06-28] MEDS: MORPHINE SULFATE INJECTION 2 MG/ML SYRG IV PRN (22:23)
[2020-06-29] MEDS: CEFEPIME 1 GM in SODIUM CHL 0.9% 50 ML IV SCH ×3 (06:00→22:00)
[2020-06-29] MEDS: InsuLIN REG 1unit/0.01ml Soln (100units/ml) SC SCH ×4 (06:54→23:46)
[2020-06-29] MEDS: ACCU-CHEK COMFORT CURVE STRIP VI SCH ×4 (06:54→22:44)
[2020-06-29 08:00] VITALS: BP 139/78
[2020-06-29] MEDS: ZINC SULFATE 220mg CAP or TAB PO SCH (10:00)
[2020-06-29] MEDS: amLODIPine BESYLATE 5 MG TAB GT SCH (10:00)
[2020-06-29] MEDS: MULTIPLE VITAMIN TAB PO SCH (10:00)
[2020-06-29] MEDS: ASCORBIC ACID 1,000 MG TAB PO SCH (10:00)
[2020-06-29] MEDS: CHOLECALCIFEROL (VITD3) 1,000UNIT=25mCg TAB PO SCH (10:00)
[2020-06-29] MEDS: FAMOTIDINE (10MG/ML) 2ML VL IV SCH ×2 (11:10→22:00)
[2020-06-29] MEDS: ENOXAPARIN SOD 40 MG/0.4 ML SYRINGE SC SCH ×2 (11:11→22:00)
[2020-06-29 16:00] VITALS: BP 171/94
[2020-06-29 18:22] VITALS: BP 157/95
[2020-06-29] MEDS: ALBUTEROL SULF HFA 90MCG INH 200DOSE IN PRN (19:04)
[2020-06-29 23:37] VITALS: BP 151/86
[2020-06-29] MEDS: MORPHINE SULFATE 4 MG/ML SYR/VIAL IV PRN (23:46)
[2020-06-30] VITALS: BP 142/88
[2020-06-30 00:05] VITALS: BP 161/105
[2020-06-30 00:27] VITALS: BP 151/86
[2020-06-30] MEDS: LABETALOL HCL 5 MG/ML 4ML SYRINGE IV PRN (01:56)
[2020-06-30] MEDS: CEFEPIME 1 GM in SODIUM CHL 0.9% 50 ML IV SCH ×3 (06:05→22:11)
[2020-06-30] MEDS: ACCU-CHEK COMFORT CURVE STRIP VI SCH ×4 (06:05→22:03)
[2020-06-30] MEDS: InsuLIN REG 1unit/0.01ml Soln (100units/ml) SC SCH ×4 (06:06→22:07)
[2020-06-30 06:11] VITALS: BP 130/79
[2020-06-30] MEDS: ALBUTEROL SULF HFA 90MCG INH 200DOSE IN PRN ×2 (06:26→19:28)
[2020-06-30 07:30] LABS: Basophils # (auto) 0 10 ^3/uL (0-0.2); Basophils % (auto) 0.3 % (0.0-2.0); Eosinophils # (auto) 0.1 10 ^3/uL (0-0.8); Eosinophils % (auto) 1.5 % (0.0-7.0); Hematocrit 41.2 % (41.0-53.0); Hemoglobin 14.2 g/dL (13.5-17.5); Lymphocytes # (auto) 0.4 10 ^3/uL (0.4-5.4); Lymphocytes % (auto) 5.8 % (10.0-50.0); Mean Corpuscular Hemoglobin 33.6 pg (28.0-32.0); Mean Corpuscular Hgb Conc. 34.4 g/dL (32.0-36.0); Mean Corpuscular Volume 97.6 fL (80.0-100.0); Monocytes # (auto) 0.7 10 ^3/uL (0-1.3); Monocytes % (auto) 8.9 % (0.0-12.0); Neutrophils # (auto) 6.1 10 ^3/uL (1.6-8.6); Neutrophils % (auto) 83.5 % (37.0-80.0); Red Blood Cells 4.22 10^6/uL (4.5-5.90); Red Cell Distribution Width 14.3 % (11.8-14.3); White Blood Cell 7.3 10^3/uL (4.4-10.8)
[2020-06-30 07:37] LABS: Albumin 2.8 g/dL (3.4-5.0); Calcium 8.5 mg/dL (8.5-10.1); Potassium 3.3 mmol/L (3.5-5.1)
[2020-06-30 07:42] LABS: Bilirubin, Total 1.1 mg/dL (0.2-1.0); Total Protein 5.7 g/dL (6.4-8.2)
[2020-06-30 08:00] VITALS: BP 159/85
[2020-06-30] MEDS: ENOXAPARIN SOD 40 MG/0.4 ML SYRINGE SC SCH ×2 (09:27→22:04)
[2020-06-30] MEDS: ASCORBIC ACID 1,000 MG TAB PO SCH (09:27)
[2020-06-30] MEDS: CHOLECALCIFEROL (VITD3) 1,000UNIT=25mCg TAB PO SCH (09:27)
[2020-06-30] MEDS: FAMOTIDINE (10MG/ML) 2ML VL IV SCH ×2 (09:27→22:04)
[2020-06-30] MEDS: ZINC SULFATE 220mg CAP or TAB PO SCH (09:27)
[2020-06-30] MEDS: MULTIPLE VITAMIN TAB PO SCH (09:27)
[2020-06-30] MEDS: amLODIPine BESYLATE 5 MG TAB GT SCH (09:29)
[2020-06-30] MEDS: Glucerna 1.2 Cal 1Liter BOTTLE GT SCH (09:46)
[2020-06-30] MEDS ORDERED: POTASSIUM EFFERVESENT TAB 25 MEQ GT ONE (15:30)
[2020-06-30 16:00] VITALS: BP 147/82
[2020-06-30] MEDS: ACETAMINOPHEN 500 MG TAB PO PRN (18:11)
[2020-07-01] VITALS: BP 142/88
[2020-07-01] MEDS: MORPHINE SULFATE 4 MG/ML SYR/VIAL IV PRN (01:15)
[2020-07-01] MEDS: CEFEPIME 1 GM in SODIUM CHL 0.9% 50 ML IV SCH ×3 (05:27→21:44)
[2020-07-01] MEDS: ACCU-CHEK COMFORT CURVE STRIP VI SCH ×4 (06:29→22:00)
[2020-07-01] MEDS: InsuLIN REG 1unit/0.01ml Soln (100units/ml) SC SCH ×4 (06:39→22:00)
[2020-07-01 08:00] VITALS: BP 144/88
[2020-07-01] MEDS: ALBUTEROL SULF HFA 90MCG INH 200DOSE IN PRN ×2 (08:00→19:51)
[2020-07-01] MEDS: amLODIPine BESYLATE 5 MG TAB GT SCH (10:00)
[2020-07-01] MEDS: MULTIPLE VITAMIN TAB PO SCH (10:00)
[2020-07-01] MEDS: ASCORBIC ACID 1,000 MG TAB PO SCH (10:00)
[2020-07-01] MEDS: CHOLECALCIFEROL (VITD3) 1,000UNIT=25mCg TAB PO SCH (10:00)
[2020-07-01] MEDS: FAMOTIDINE (10MG/ML) 2ML VL IV SCH (10:00)
[2020-07-01] MEDS: ZINC SULFATE 220mg CAP or TAB PO SCH (10:00)
[2020-07-01] MEDS: ENOXAPARIN SOD 40 MG/0.4 ML SYRINGE SC SCH ×2 (10:00→21:44)
[2020-07-01] MEDS ORDERED: POTASSIUM EFFERVESENT TAB 25 MEQ PO ONE (14:00)
[2020-07-01 16:00] VITALS: BP 146/88
[2020-07-01 17:46] LABS: Amylase 125 U/L (25-115); Lipase 472 U/L (73-393)
[2020-07-01] MEDS: PANTOPRAZOLE 40 MG/10 ML VIAL INJ IV SCH (21:44)
[2020-07-01] MEDS: metroNIDAZOLE 500MG/100ML 100 ML IV SCH (21:44)
[2020-07-01] MEDS: SUCRALFATE 1 GM/10 ML ORAL SUSP PO SCH (21:44)
[2020-07-02] VITALS: BP 148/78
[2020-07-02] MEDS: CEFEPIME 1 GM in SODIUM CHL 0.9% 50 ML IV SCH ×2 (05:44→18:56)
[2020-07-02] MEDS: metroNIDAZOLE 500MG/100ML 100 ML IV SCH (05:44)
[2020-07-02] MEDS: InsuLIN REG 1unit/0.01ml Soln (100units/ml) SC SCH ×4 (06:15→22:14)
[2020-07-02] MEDS: ACCU-CHEK COMFORT CURVE STRIP VI SCH ×4 (06:15→21:59)
[2020-07-02] MEDS: SUCRALFATE 1 GM/10 ML ORAL SUSP PO SCH ×4 (06:15→21:59)
[2020-07-02 07:43] LABS: Basophils # (auto) 0 10 ^3/uL (0-0.2); Basophils % (auto) 0.4 % (0.0-2.0); Eosinophils # (auto) 0 10 ^3/uL (0-0.8); Eosinophils % (auto) 0.3 % (0.0-7.0); Hematocrit 42.8 % (41.0-53.0); Hemoglobin 14.5 g/dL (13.5-17.5); Lymphocytes # (auto) 1.1 10 ^3/uL (0.4-5.4); Lymphocytes % (auto) 12.6 % (10.0-50.0); Mean Corpuscular Hemoglobin 32.9 pg (28.0-32.0); Mean Corpuscular Hgb Conc. 33.8 g/dL (32.0-36.0); Mean Corpuscular Volume 97.2 fL (80.0-100.0); Monocytes # (auto) 0.7 10 ^3/uL (0-1.3); Monocytes % (auto) 7.9 % (0.0-12.0); Neutrophils # (auto) 7.1 10 ^3/uL (1.6-8.6); Neutrophils % (auto) 78.8 % (37.0-80.0); Nucleated Red Blood Cells % 0.2 %; Red Cell Distribution Width 14.5 % (11.8-14.3); White Blood Cell 9.1 10^3/uL (4.4-10.8)
[2020-07-02 08:00] VITALS: BP 148/84
[2020-07-02] MEDS: MULTIPLE VITAMIN TAB PO SCH (09:50)
[2020-07-02] MEDS: amLODIPine BESYLATE 5 MG TAB GT SCH (09:50)
[2020-07-02] MEDS: PANTOPRAZOLE 40 MG/10 ML VIAL INJ IV SCH ×2 (09:50→21:58)
[2020-07-02] MEDS: ASCORBIC ACID 1,000 MG TAB PO SCH (09:50)
[2020-07-02] MEDS: ZINC SULFATE 220mg CAP or TAB PO SCH (09:50)
[2020-07-02] MEDS: CHOLECALCIFEROL (VITD3) 1,000UNIT=25mCg TAB PO SCH (09:51)
[2020-07-02] MEDS: ENOXAPARIN SOD 40 MG/0.4 ML SYRINGE SC SCH ×2 (09:51→21:59)
[2020-07-02] MEDS ORDERED: MORPHINE SULFATE INJECTION 2 MG/ML SYRG IV PRN (10:15)
[2020-07-02 11:17] LABS: BUN/Creatinine Ratio 41.3; Calcium 8.7 mg/dL (8.5-10.1); Potassium 3.6 mmol/L (3.5-5.1)
[2020-07-02] MEDS ORDERED: CEFEPIME 1 GM in SODIUM CHL 0.9% 50 ML IV SCH ×2 (14:00→17:00)
[2020-07-02] MEDS ORDERED: FREE WATER GT SCH (14:00)
[2020-07-02] MEDS: FREE WATER GT SCH ×3 (14:13→21:58)
[2020-07-02 16:00] VITALS: BP 155/79
[2020-07-02] MEDS: DOXYCYCLINE 100MG/250ML 250 ML IV SCH ×2 (16:51→21:58)
[2020-07-02] MEDS: ACETAMINOPHEN 500 MG TAB PO PRN (16:56)
[2020-07-02] MEDS: ALBUTEROL SULF HFA 90MCG INH 200DOSE IN PRN (19:53)
[2020-07-03] VITALS: BP 156/73
[2020-07-03] MEDS: ACETAMINOPHEN 500 MG TAB PO PRN (01:01)
[2020-07-03] MEDS ORDERED: dilTIAZem 25 MG/5 ML VIAL IV ONE (02:30)
[2020-07-03] MEDS: FREE WATER GT SCH ×6 (02:33→21:20)
[2020-07-03] MEDS: SUCRALFATE 1 GM/10 ML ORAL SUSP PO SCH ×4 (06:08→21:20)
[2020-07-03] MEDS: InsuLIN REG 1unit/0.01ml Soln (100units/ml) SC SCH ×3 (06:09→21:19)
[2020-07-03] MEDS: ACCU-CHEK COMFORT CURVE STRIP VI SCH ×4 (06:09→21:22)
[2020-07-03] MEDS: CEFEPIME 1 GM in SODIUM CHL 0.9% 50 ML IV SCH ×3 (06:24→23:04)
[2020-07-03 06:52] LABS: BUN/Creatinine Ratio 47.4; Calcium 8.7 mg/dL (8.5-10.1); Potassium 3.8 mmol/L (3.5-5.1)
[2020-07-03 08:00] VITALS: BP 140/96
[2020-07-03] MEDS: MULTIPLE VITAMIN TAB PO SCH (09:46)
[2020-07-03] MEDS: amLODIPine BESYLATE 5 MG TAB GT SCH (09:46)
[2020-07-03] MEDS: PANTOPRAZOLE 40 MG/10 ML VIAL INJ IV SCH ×2 (09:46→21:21)
[2020-07-03] MEDS: ZINC SULFATE 220mg CAP or TAB PO SCH (09:46)
[2020-07-03] MEDS: DOXYCYCLINE 100MG/250ML 250 ML IV SCH ×2 (09:46→21:20)
[2020-07-03] MEDS: ASCORBIC ACID 1,000 MG TAB PO SCH (09:47)
[2020-07-03] MEDS: CHOLECALCIFEROL (VITD3) 1,000UNIT=25mCg TAB PO SCH (09:47)
[2020-07-03] MEDS: ENOXAPARIN SOD 40 MG/0.4 ML SYRINGE SC SCH ×2 (10:00→21:22)
[2020-07-03] MEDS: ALBUTEROL SULF HFA 90MCG INH 200DOSE IN PRN ×2 (10:59→19:27)
[2020-07-03] MEDS: Glucerna 1.2 Cal 1Liter BOTTLE GT SCH (11:06)
[2020-07-03] MEDS ORDERED: SODIUM CHLORIDE 0.9% 500 ML IV ONE (12:30)
[2020-07-03] MEDS ORDERED: LABETALOL HCL 5 MG/ML 4ML SYRINGE IV ONE (13:00)
[2020-07-03] MEDS: SOD CHL 0.45% WITH 20MEQ KCL 1,000 ML IV SCH (13:40)
[2020-07-03] MEDS: metroNIDAZOLE 500MG/100ML 100 ML IV SCH ×2 (14:00→20:20)
[2020-07-03 16:00] VITALS: BP 111/73
[2020-07-03] MEDS: METOPROLOL TARTRATE 25 MG TAB PO SCH (21:21)
[2020-07-04] VITALS: BP 128/80
[2020-07-04] MEDS: SUCRALFATE 1 GM/10 ML ORAL SUSP PO SCH ×5 (00:28→22:09)
[2020-07-04] MEDS: SOD CHL 0.45% WITH 20MEQ KCL 1,000 ML IV SCH ×2 (01:50→15:10)
[2020-07-04] MEDS: FREE WATER GT SCH ×6 (03:18→22:09)
[2020-07-04] MEDS: metroNIDAZOLE 500MG/100ML 100 ML IV SCH ×3 (05:02→22:09)
[2020-07-04] MEDS: InsuLIN REG 1unit/0.01ml Soln (100units/ml) SC SCH ×4 (06:02→22:00)
[2020-07-04] MEDS: CEFEPIME 1 GM in SODIUM CHL 0.9% 50 ML IV SCH ×2 (06:15→14:00)
[2020-07-04] MEDS: ACCU-CHEK COMFORT CURVE STRIP VI SCH ×4 (06:16→22:12)
[2020-07-04 06:48] LABS: Potassium 3.7 mmol/L (3.5-5.1)
[2020-07-04 06:55] LABS: BUN/Creatinine Ratio 58.2; Calcium 8.2 mg/dL (8.5-10.1)
[2020-07-04] MEDS: ALBUTEROL SULF HFA 90MCG INH 200DOSE IN PRN ×2 (07:45→19:04)
[2020-07-04 08:00] VITALS: BP 144/74
[2020-07-04] MEDS: amLODIPine BESYLATE 5 MG TAB GT SCH (09:21)
[2020-07-04] MEDS: ZINC SULFATE 220mg CAP or TAB PO SCH (09:22)
[2020-07-04] MEDS: ASPirin 81 mg TAB PO SCH (09:22)
[2020-07-04] MEDS: PANTOPRAZOLE 40 MG/10 ML VIAL INJ IV SCH ×2 (09:22→22:08)
[2020-07-04] MEDS: DOXYCYCLINE 100MG/250ML 250 ML IV SCH ×2 (09:22→22:38)
[2020-07-04] MEDS: METOPROLOL TARTRATE 25 MG TAB PO SCH ×2 (09:23→22:10)
[2020-07-04] MEDS: MULTIPLE VITAMIN TAB PO SCH (09:23)
[2020-07-04] MEDS: ENOXAPARIN SOD 40 MG/0.4 ML SYRINGE SC SCH ×2 (09:24→22:13)
[2020-07-04] MEDS: CHOLECALCIFEROL (VITD3) 1,000UNIT=25mCg TAB PO SCH (09:24)
[2020-07-04] MEDS: ASCORBIC ACID 1,000 MG TAB PO SCH (09:24)
[2020-07-04 16:00] VITALS: BP 131/76
[2020-07-05] MEDS: CEFEPIME 1 GM in SODIUM CHL 0.9% 50 ML IV SCH ×2 (00:08→06:00)
[2020-07-05 00:12] VITALS: BP 122/72
[2020-07-05] MEDS: FREE WATER GT SCH ×6 (02:00→21:25)
[2020-07-05] MEDS: SOD CHL 0.45% WITH 20MEQ KCL 1,000 ML IV SCH (06:55)
[2020-07-05] MEDS: metroNIDAZOLE 500MG/100ML 100 ML IV SCH ×3 (06:55→21:26)
[2020-07-05] MEDS: SUCRALFATE 1 GM/10 ML ORAL SUSP PO SCH ×4 (06:56→21:26)
[2020-07-05] MEDS: ACCU-CHEK COMFORT CURVE STRIP VI SCH ×4 (06:56→22:07)
[2020-07-05] MEDS: InsuLIN REG 1unit/0.01ml Soln (100units/ml) SC SCH ×4 (06:59→22:12)
[2020-07-05 08:00] VITALS: BP 156/84
[2020-07-05 08:17] LABS: Basophils # (auto) 0 10 ^3/uL (0-0.2); Basophils % (auto) 0.2 % (0.0-2.0); Eosinophils # (auto) 0.2 10 ^3/uL (0-0.8); Eosinophils % (auto) 1.9 % (0.0-7.0); Hematocrit 36.9 % (41.0-53.0); Hemoglobin 12.8 g/dL (13.5-17.5); Lymphocytes # (auto) 0.8 10 ^3/uL (0.4-5.4); Lymphocytes % (auto) 7.2 % (10.0-50.0); Mean Corpuscular Hgb Conc. 34.6 g/dL (32.0-36.0); Mean Corpuscular Volume 98.2 fL (80.0-100.0); Monocytes # (auto) 0.6 10 ^3/uL (0-1.3); Neutrophils # (auto) 9.9 10 ^3/uL (1.6-8.6); Neutrophils % (auto) 85.7 % (37.0-80.0); Nucleated Red Blood Cells % 0.1 %; Red Blood Cells 3.76 10^6/uL (4.5-5.90); Red Cell Distribution Width 14.3 % (11.8-14.3); White Blood Cell 11.5 10^3/uL (4.4-10.8)
[2020-07-05 08:23] LABS: Albumin 2.4 g/dL (3.4-5.0); Calcium 8.1 mg/dL (8.5-10.1)
[2020-07-05 08:29] LABS: BUN/Creatinine Ratio 54.7; Bilirubin, Total 0.8 mg/dL (0.2-1.0); Potassium 3.6 mmol/L (3.5-5.1); Total Protein 5.2 g/dL (6.4-8.2)
[2020-07-05] MEDS: PANTOPRAZOLE 40 MG/10 ML VIAL INJ IV SCH ×2 (09:51→21:26)
[2020-07-05] MEDS: ENOXAPARIN SOD 40 MG/0.4 ML SYRINGE SC SCH ×2 (09:52→22:07)
[2020-07-05] MEDS: ASPirin 81 mg TAB PO SCH (09:52)
[2020-07-05] MEDS: CHOLECALCIFEROL (VITD3) 1,000UNIT=25mCg TAB PO SCH (09:52)
[2020-07-05] MEDS: ZINC SULFATE 220mg CAP or TAB PO SCH (09:52)
[2020-07-05] MEDS: MULTIPLE VITAMIN TAB PO SCH (09:52)
[2020-07-05] MEDS: ASCORBIC ACID 1,000 MG TAB PO SCH (09:52)
[2020-07-05] MEDS: amLODIPine BESYLATE 5 MG TAB GT SCH (09:53)
[2020-07-05] MEDS: METOPROLOL TARTRATE 25 MG TAB PO SCH ×2 (09:53→22:08)
[2020-07-05] MEDS: DOXYCYCLINE 100MG/250ML 250 ML IV SCH ×2 (10:00→23:01)
[2020-07-05] MEDS ORDERED: Glucerna 1.2 Cal 1Liter BOTTLE GT SCH (10:45)
[2020-07-05 15:58] VITALS: BP 118/69
[2020-07-05] MEDS: ALBUTEROL SULF HFA 90MCG INH 200DOSE IN PRN (19:46)
[2020-07-05 21:10] VITALS: BP 131/72
[2020-07-05] MEDS: ATORVASTATIN 20 MG TAB PO SCH (21:26)
[2020-07-06] VITALS: BP 109/67
[2020-07-06] MEDS: FREE WATER GT SCH ×6 (01:46→21:18)
[2020-07-06] MEDS: SUCRALFATE 1 GM/10 ML ORAL SUSP PO SCH ×4 (06:35→21:19)
[2020-07-06] MEDS: InsuLIN REG 1unit/0.01ml Soln (100units/ml) SC SCH ×4 (06:36→22:00)
[2020-07-06] MEDS: metroNIDAZOLE 500MG/100ML 100 ML IV SCH ×2 (06:36→14:00)
[2020-07-06] MEDS: ACCU-CHEK COMFORT CURVE STRIP VI SCH ×4 (06:37→22:11)
[2020-07-06 07:41] LABS: Calcium 8.2 mg/dL (8.5-10.1); Potassium 3.6 mmol/L (3.5-5.1)
[2020-07-06 07:44] LABS: BUN/Creatinine Ratio 52.1
[2020-07-06 07:48] VITALS: BP 112/66
[2020-07-06] MEDS: amLODIPine BESYLATE 5 MG TAB GT SCH (10:00)
[2020-07-06] MEDS: ASCORBIC ACID 1,000 MG TAB PO SCH (10:00)
[2020-07-06] MEDS: ASPirin 81 mg TAB PO SCH (10:00)
[2020-07-06] MEDS: PANTOPRAZOLE 40 MG/10 ML VIAL INJ IV SCH ×2 (10:00→21:18)
[2020-07-06] MEDS: ZINC SULFATE 220mg CAP or TAB PO SCH (10:00)
[2020-07-06] MEDS: DOXYCYCLINE 100MG/250ML 250 ML IV SCH ×2 (10:00→22:11)
[2020-07-06] MEDS: MULTIPLE VITAMIN TAB PO SCH (10:00)
[2020-07-06] MEDS: CHOLECALCIFEROL (VITD3) 1,000UNIT=25mCg TAB PO SCH (10:00)
[2020-07-06] MEDS: ENOXAPARIN SOD 40 MG/0.4 ML SYRINGE SC SCH ×2 (10:00→21:25)
[2020-07-06] MEDS: METOPROLOL TARTRATE 25 MG TAB PO SCH ×3 (10:30→21:26)
[2020-07-06 15:48] VITALS: BP 108/56
[2020-07-06] MEDS: ATORVASTATIN 20 MG TAB PO SCH (21:19)
[2020-07-07] VITALS: BP 135/69
[2020-07-07] MEDS: FREE WATER GT SCH ×5 (03:00→18:27)
[2020-07-07] MEDS: ACCU-CHEK COMFORT CURVE STRIP VI SCH ×4 (05:41→21:37)
[2020-07-07] MEDS: InsuLIN REG 1unit/0.01ml Soln (100units/ml) SC SCH ×4 (05:49→21:38)
[2020-07-07] MEDS: SUCRALFATE 1 GM/10 ML ORAL SUSP PO SCH ×4 (06:23→21:36)
[2020-07-07 06:34] LABS: Anion Gap 9 (5-15); BUN/Creatinine Ratio 50.9; Blood Urea Nitrogen 29 mg/dL (7-18); Calcium 8.2 mg/dL (8.5-10.1); Carbon Dioxide 25 mmol/L (21-32); Chloride 111 mmol/L (98-107); GFR African American 179 mL/min; GFR Non-African American 148 mL/min; Glucose 105 mg/dL (74-106); Potassium 3.5 mmol/L (3.5-5.1); Sodium 145 mmol/L (136-145)
[2020-07-07 08:00] VITALS: BP 132/78
[2020-07-07] MEDS: METOPROLOL TARTRATE 25 MG TAB PO SCH ×2 (11:41→21:36)
[2020-07-07] MEDS: MULTIPLE VITAMIN TAB PO SCH (11:42)
[2020-07-07] MEDS: ZINC SULFATE 220mg CAP or TAB PO SCH (11:42)
[2020-07-07] MEDS: PANTOPRAZOLE 40 MG/10 ML VIAL INJ IV SCH ×2 (11:42→21:35)
[2020-07-07] MEDS: ASPirin 81 mg TAB PO SCH (11:42)
[2020-07-07] MEDS: amLODIPine BESYLATE 5 MG TAB GT SCH (11:42)
[2020-07-07] MEDS: DOXYCYCLINE 100MG/250ML 250 ML IV SCH ×2 (11:42→21:35)
[2020-07-07] MEDS: CHOLECALCIFEROL (VITD3) 1,000UNIT=25mCg TAB PO SCH (11:43)
[2020-07-07] MEDS: ENOXAPARIN SOD 40 MG/0.4 ML SYRINGE SC SCH ×2 (11:43→21:37)
[2020-07-07] MEDS: ASCORBIC ACID 1,000 MG TAB PO SCH (11:43)
[2020-07-07 15:48] VITALS: BP 137/80
[2020-07-07] MEDS: ALBUTEROL SULF HFA 90MCG INH 200DOSE IN PRN (20:07)
[2020-07-07] MEDS: ATORVASTATIN 20 MG TAB PO SCH (21:36)
[2020-07-08 00:45] VITALS: BP 115/67
[2020-07-08] MEDS: FREE WATER GT SCH ×5 (02:00→14:00)
[2020-07-08] MEDS: ACCU-CHEK COMFORT CURVE STRIP VI SCH ×4 (06:16→21:55)
[2020-07-08] MEDS: InsuLIN REG 1unit/0.01ml Soln (100units/ml) SC SCH ×4 (06:17→22:25)
[2020-07-08] MEDS: SUCRALFATE 1 GM/10 ML ORAL SUSP PO SCH ×4 (06:17→21:54)
[2020-07-08 08:00] VITALS: BP 126/82
[2020-07-08] MEDS: amLODIPine BESYLATE 5 MG TAB GT SCH (09:42)
[2020-07-08] MEDS: DOXYCYCLINE 100MG/250ML 250 ML IV SCH ×2 (09:43→21:53)
[2020-07-08] MEDS: ASPirin 81 mg TAB PO SCH (09:43)
[2020-07-08] MEDS: PANTOPRAZOLE 40 MG/10 ML VIAL INJ IV SCH ×2 (09:43→21:53)
[2020-07-08] MEDS: ZINC SULFATE 220mg CAP or TAB PO SCH (09:43)
[2020-07-08] MEDS: ENOXAPARIN SOD 40 MG/0.4 ML SYRINGE SC SCH ×2 (09:44→21:55)
[2020-07-08] MEDS: MULTIPLE VITAMIN TAB PO SCH (09:44)
[2020-07-08] MEDS: METOPROLOL TARTRATE 25 MG TAB PO SCH ×2 (09:44→21:54)
[2020-07-08] MEDS: ASCORBIC ACID 1,000 MG TAB PO SCH (09:44)
[2020-07-08] MEDS: CHOLECALCIFEROL (VITD3) 1,000UNIT=25mCg TAB PO SCH (09:44)
[2020-07-08 15:52] VITALS: BP 143/81
[2020-07-08] MEDS: ATORVASTATIN 20 MG TAB PO SCH (21:54)
[2020-07-09] MEDS: InsuLIN REG 1unit/0.01ml Soln (100units/ml) SC SCH ×4 (06:44→22:00)
[2020-07-09] MEDS: ACCU-CHEK COMFORT CURVE STRIP VI SCH ×3 (06:44→17:00)
[2020-07-09] MEDS: SUCRALFATE 1 GM/10 ML ORAL SUSP PO SCH ×3 (06:44→17:30)
[2020-07-09 07:46] VITALS: BP 124/75
[2020-07-09] MEDS: ASPirin 81 mg TAB PO SCH (09:30)
[2020-07-09] MEDS: METOPROLOL TARTRATE 25 MG TAB PO SCH (09:30)
[2020-07-09] MEDS: amLODIPine BESYLATE 5 MG TAB GT SCH (09:30)
[2020-07-09] MEDS: MULTIPLE VITAMIN TAB PO SCH (09:30)
[2020-07-09] MEDS: CHOLECALCIFEROL (VITD3) 1,000UNIT=25mCg TAB PO SCH (09:30)
[2020-07-09 09:32] LABS: Basophils # (auto) 0 10 ^3/uL (0-0.2); Basophils % (auto) 0.5 % (0.0-2.0); Eosinophils # (auto) 0.1 10 ^3/uL (0-0.8); Eosinophils % (auto) 2.1 % (0.0-7.0); Hematocrit 35.2 % (41.0-53.0); Hemoglobin 11.9 g/dL (13.5-17.5); Lymphocytes # (auto) 0.9 10 ^3/uL (0.4-5.4); Lymphocytes % (auto) 12.8 % (10.0-50.0); Mean Corpuscular Hemoglobin 32.9 pg (28.0-32.0); Mean Corpuscular Hgb Conc. 33.9 g/dL (32.0-36.0); Mean Corpuscular Volume 97.1 fL (80.0-100.0); Monocytes # (auto) 0.8 10 ^3/uL (0-1.3); Monocytes % (auto) 11.6 % (0.0-12.0); Neutrophils # (auto) 5.3 10 ^3/uL (1.6-8.6); Nucleated Red Blood Cells % 0.1 %; Red Blood Cells 3.62 10^6/uL (4.5-5.90); Red Cell Distribution Width 14.5 % (11.8-14.3); White Blood Cell 7.2 10^3/uL (4.4-10.8)
[2020-07-09 09:42] LABS: Calcium 8.3 mg/dL (8.5-10.1); Potassium 3.9 mmol/L (3.5-5.1)
[2020-07-09 09:45] LABS: BUN/Creatinine Ratio 32.4
[2020-07-09] MEDS ORDERED: ACETAMINOPHEN 325 MG TAB PO PRN (10:30)
[2020-07-09] MEDS ORDERED: DEXTROSE (50%) 50ML SYRG IV PRN (10:30)
[2020-07-09 13:20] VITALS: BP 120/69
[2020-07-09 16:00] VITALS: BP 130/79
[2020-07-09] MEDS: ALBUTEROL SULF HFA 90MCG INH 200DOSE IN PRN (22:25)
[2020-07-09 23:55] VITALS: BP 127/74
[2020-07-10] MEDS: SUCRALFATE 1 GM/10 ML ORAL SUSP PO SCH ×5 (00:46→22:43)
[2020-07-10] MEDS: ATORVASTATIN 20 MG TAB PO SCH ×2 (00:46→22:43)
[2020-07-10] MEDS: METOPROLOL TARTRATE 25 MG TAB PO SCH ×3 (00:48→22:44)
[2020-07-10] MEDS: ACCU-CHEK COMFORT CURVE STRIP VI SCH ×5 (00:49→22:44)
[2020-07-10] MEDS: InsuLIN REG 1unit/0.01ml Soln (100units/ml) SC SCH ×4 (06:27→22:47)
[2020-07-10] MEDS: ALBUTEROL SULF HFA 90MCG INH 200DOSE IN PRN ×2 (07:16→19:00)
[2020-07-10 08:00] VITALS: BP 130/72
[2020-07-10] MEDS: ASPirin 81 mg TAB PO SCH (09:20)
[2020-07-10] MEDS: CHOLECALCIFEROL (VITD3) 1,000UNIT=25mCg TAB PO SCH (09:20)
[2020-07-10] MEDS: MULTIPLE VITAMIN TAB PO SCH (09:20)
[2020-07-10] MEDS: ENOXAPARIN SOD 40 MG/0.4 ML SYRINGE SC SCH (09:20)
[2020-07-10] MEDS: PANTOPRAZOLE 40 MG TAB PO SCH (09:20)
[2020-07-10] MEDS: amLODIPine BESYLATE 5 MG TAB GT SCH (09:20)
[2020-07-10 16:00] VITALS: BP 132/75
[2020-07-11] VITALS: BP 132/83
[2020-07-11] MEDS: ACCU-CHEK COMFORT CURVE STRIP VI SCH ×2 (06:31→11:56)
[2020-07-11] MEDS: InsuLIN REG 1unit/0.01ml Soln (100units/ml) SC SCH ×2 (06:31→11:56)
[2020-07-11] MEDS: SUCRALFATE 1 GM/10 ML ORAL SUSP PO SCH ×2 (06:32→11:58)
[2020-07-11 08:00] VITALS: BP 135/74
[2020-07-11] MEDS: ASPirin 81 mg TAB PO SCH (10:48)
[2020-07-11] MEDS: amLODIPine BESYLATE 5 MG TAB GT SCH (10:48)
[2020-07-11] MEDS: METOPROLOL TARTRATE 25 MG TAB PO SCH (10:48)
[2020-07-11] MEDS: ENOXAPARIN SOD 40 MG/0.4 ML SYRINGE SC SCH (10:49)
[2020-07-11] MEDS: MULTIPLE VITAMIN TAB PO SCH (10:49)
[2020-07-11] MEDS: CHOLECALCIFEROL (VITD3) 1,000UNIT=25mCg TAB PO SCH (10:49)
[2020-07-11] MEDS: PANTOPRAZOLE 40 MG TAB PO SCH (10:49)
[2020-07-11 16:00] VITALS: BP 120/77
== END 2020-07-11 16:14 | DRG 870 ==
LOC: EDBD 21:59 → ER 22:02 → TELE 06-10 03:31 → ICU WEST 06-22 18:23 → TELE-WESTW 06-28 23:59
PROVIDERS: ADMIT Nurse Practitioner Family; ATTEND Internal Medicine
PROC: 5A1955Z Respiratory Ventilation, Greater than 96 Consecutive Hours (ICD-10-PCS; principal; 2020-06-09)
PROC: 0BH17EZ Insertion of Endotracheal Airway into Trachea, Via Natural or Artificial Opening (ICD-10-PCS; 2020-06-09)
PROC: 5A09357 Assistance with Respiratory Ventilation, Less than 24 Consecutive Hours, Continuous Positive Airway Pressure (ICD-10-PCS; 2020-06-09)
PROC: 5A09357 Assistance with Respiratory Ventilation, Less than 24 Consecutive Hours, Continuous Positive Airway Pressure (ICD-10-PCS; 2020-06-10)
PROC: XW033H5 Introduction of Tocilizumab into Peripheral Vein, Percutaneous Approach, New Technology Group 5 (ICD-10-PCS; 2020-06-12)
PROC: XW13325 Transfusion of Convalescent Plasma (Nonautologous) into Peripheral Vein, Percutaneous Approach, New Technology Group 5 (ICD-10-PCS; 2020-06-13)
PROC: XW033E5 Introduction of Remdesivir Anti-infective into Peripheral Vein, Percutaneous Approach, New Technology Group 5 (ICD-10-PCS; 2020-06-14)
PROC: 5A09357 Assistance with Respiratory Ventilation, Less than 24 Consecutive Hours, Continuous Positive Airway Pressure (ICD-10-PCS; 2020-06-27)
PROC: 05H933Z Insertion of Infusion Device into Right Brachial Vein, Percutaneous Approach (ICD-10-PCS; 2020-07-02)
DX: A41.89 Other specified sepsis (principal); U07.1 COVID-19; J12.82 Pneumonia due to coronavirus disease 2019; J96.01 Acute respiratory failure with hypoxia; I21.A1 Myocardial infarction type 2; J13 Pneumonia due to Streptococcus pneumoniae; J15.1 Pneumonia due to Pseudomonas; R65.21 Severe sepsis with septic shock; N17.0 Acute kidney failure with tubular necrosis; E87.1 Hypo-osmolality and hyponatremia; E44.0 Moderate protein-calorie malnutrition; J98.11 Atelectasis; E87.0 Hyperosmolality and hypernatremia; D89.839 Cytokine release syndrome, grade unspecified; N28.9 Disorder of kidney and ureter, unspecified; R79.89 Other specified abnormal findings of blood chemistry; N18.30 Chronic kidney disease, stage 3 unspecified; E11.65 Type 2 diabetes mellitus with hyperglycemia; J43.9 Emphysema, unspecified; E66.9 Obesity, unspecified; Z68.33 Body mass index [BMI] 33.0-33.9, adult; E87.5 Hyperkalemia; E78.5 Hyperlipidemia, unspecified; G62.9 Polyneuropathy, unspecified; I25.10 Atherosclerotic heart disease of native coronary artery without angina pectoris; I49.3 Ventricular premature depolarization; I70.0 Atherosclerosis of aorta; I77.810 Thoracic aortic ectasia; Z80.3 Family history of malignant neoplasm of breast; Z82.3 Family history of stroke; Z82.49 Family history of ischemic heart disease and other diseases of the circulatory system; Z83.3 Family history of diabetes mellitus; Z95.5 Presence of coronary angioplasty implant and graft; I12.9 Hypertensive chronic kidney disease with stage 1 through stage 4 chronic kidney disease, or unspecified chronic kidney disease; E11.22 Type 2 diabetes mellitus with diabetic chronic kidney disease
CPT/HCPCS: 36415; 36600; 51702; 70450; 71045; 71250; 74176; 76775; 80048; 80053; 80061; 82040; 82150; 82728; 82805; 82962; 83036; 83605; 83615; 83690; 83735; 83880; 84100; 84484; 85007; 85025; 85027; 85379; 85610; 85730; 86141; 86850; 86900; 86901; 87040; 87070; 87077; 87081; 87147; 87186; 87205; 87426; 87493; 92610; 93005; 93306; 93970; 93971; 94003; 94640; 94660; 96361; 96365; 96366; 96372; 96375; 97110; 97163; 97530; 99291; C9113; G0378; J0330; J1100; J1815; J1956; J2185; J2250; J2704; J3490; J7060; P9047

== ENCOUNTER 2023-01-28 15:58 | Inpatient (IN) | payer OTHER ==
[~2023-01-28] VITALS: Ht 167.6 cm; Wt 85.4 kg
[~2023-01-28 15:58] MED LIST: ASPI-543 PO; ATO40T PO; LISI-275 PO; METO-158 PO
[2023-01-28 16:00] VITALS: O2SAT 88
[2023-01-28] MEDS ORDERED: SODIUM CHLORIDE 0.9% 1,000 ML IV ONE (16:15)
[2023-01-28] MEDS ORDERED: METOPROLOL TARTRATE 1MG/1ML-5ML VIAL IV ONE (16:15)
[2023-01-28] MEDS ORDERED: ADENOSINE 6 MG/2 ML INJ IV ONE (16:30)
[2023-01-28 16:44] LABS: Basophils # (auto) 0 10 ^3/uL (0-0.2); Basophils % (auto) 0.3 % (0.0-2.0); Eosinophils # (auto) 0.2 10 ^3/uL (0-0.8); Eosinophils % (auto) 2.5 % (0.0-7.0); Hematocrit 49.7 % (41.0-53.0); Hemoglobin 16.3 g/dL (13.5-17.5); Lymphocytes # (auto) 1.5 10 ^3/uL (0.4-5.4); Lymphocytes % (auto) 16.2 % (10.0-50.0); Mean Corpuscular Hemoglobin 32.6 pg (28.0-32.0); Mean Corpuscular Hgb Conc. 32.9 g/dL (32.0-36.0); Mean Corpuscular Volume 99.1 fL (80.0-100.0); Monocytes % (auto) 11.3 % (0.0-12.0); Neutrophils # (auto) 6.3 10 ^3/uL (1.6-8.6); Neutrophils % (auto) 69.7 % (37.0-80.0); Nucleated Red Blood Cells % 0.1 %; Red Blood Cells 5.01 10^6/uL (4.5-5.90); Red Cell Distribution Width 14.5 % (11.8-14.3); White Blood Cell 9.1 10^3/uL (4.4-10.8)
[2023-01-28 17:21] LABS: Alanine Aminotransferase 30 U/L (7-40); Albumin 4.1 g/dL (3.2-4.8); Alkaline Phosphatase 74 U/L (46-116); Anion Gap 12.9 (5-15); Aspartate Aminotransferase 23 U/L (13-40); BUN/Creatinine Ratio 32.3 (10.0-20.0); Blood Urea Nitrogen 43 mg/dL (9-23); Carbon Dioxide 19.1 mmol/L (20-30); Chloride 107 mmol/L (98-107); Glucose 119 mg/dL (74-106); Magnesium 1.9 mg/dL (1.6-2.6); Sodium 139 mmol/L (136-145)
[2023-01-28 17:22] LABS: Bilirubin, Total 0.4 mg/dL (0.2-1.0); Total Protein 6.3 g/dL (5.7-8.2)
[2023-01-28] MEDS ORDERED: FUROSEMIDE 20 MG/2 ML VIAL IV ONE (17:45)
[2023-01-28] MEDS ORDERED: IOHEXOL 350 MG/ML 100ML IJ ONE (18:33)
[2023-01-28 19:23] LABS: Urine Bacteria NONE SEEN /hpf (None Seen); Urine Blood 1+ /uL (Negative); Urine Clarity Clear (Clear); Urine Color Colorless (Yellow); Urine Protein, UAD Negative (Negative); Urine Specific Gravity 1.009 (1.001-1.035); Urine Urobilinogen Normal (Negative); Urine WBC 1 /hpf (0 - 3)
[2023-01-28 19:30] VITALS: PULSE 104; RESP 20; O2SAT 92
[2023-01-28] MEDS ORDERED: ASPirin 325 MG TAB PO ONE (21:30)
[2023-01-28] MEDS ORDERED: NITROGLYCERIN 0.4 MG SL TAB SL PRN (22:30)
[2023-01-28] MEDS ORDERED: MORPHINE SULFATE INJ 2 MG/ml SYRG IV PRN (22:30)
[2023-01-28] MEDS ORDERED: ACETAMINOPHEN 325 MG TAB PO PRN (22:30)
[2023-01-28] MEDS ORDERED: ONDANSETRON HCL 4 MG/2 ML VIAL IV PRN (22:30)
[2023-01-29] VITALS (10 sets, daily range): BP systolic 119–154; BP diastolic 68–84; PULSE 75–107; RESP 15–97; TEMP 98.1; O2SAT 93–97
[2023-01-29 05:52] LABS: Anion Gap 9.8 (5-15); Carbon Dioxide 22.2 mmol/L (20-30); Chloride 107 mmol/L (98-107); Potassium 3.7 mmol/L (3.5-5.1); Sodium 139 mmol/L (136-145)
[2023-01-29 05:53] LABS: Calcium 9.3 mg/dL (8.7-10.4)
[2023-01-29 05:57] LABS: Basophils # (auto) 0 10 ^3/uL (0-0.2); Basophils % (auto) 0.5 % (0.0-2.0); Eosinophils # (auto) 0.2 10 ^3/uL (0-0.8); Eosinophils % (auto) 2.6 % (0.0-7.0); Hemoglobin 17.5 g/dL (13.5-17.5); Lymphocytes # (auto) 1.3 10 ^3/uL (0.4-5.4); Lymphocytes % (auto) 14.5 % (10.0-50.0); Mean Corpuscular Hemoglobin 32.6 pg (28.0-32.0); Mean Corpuscular Hgb Conc. 33.6 g/dL (32.0-36.0); Mean Corpuscular Volume 96.9 fL (80.0-100.0); Monocytes # (auto) 0.8 10 ^3/uL (0-1.3); Monocytes % (auto) 9.2 % (0.0-12.0); Neutrophils # (auto) 6.8 10 ^3/uL (1.6-8.6); Neutrophils % (auto) 73.2 % (37.0-80.0); Nucleated Red Blood Cells % 0.2 %; Red Blood Cells 5.36 10^6/uL (4.5-5.90); Red Cell Distribution Width 14.6 % (11.8-14.3); White Blood Cell 9.3 10^3/uL (4.4-10.8)
[2023-01-29 05:58] LABS: BUN/Creatinine Ratio 14.9 (10.0-20.0); Blood Urea Nitrogen 22 mg/dL (9-23); Glucose 173 mg/dL (74-106)
[2023-01-29] MEDS ORDERED: ACETYLCYSTEINE ORAL for CIN 20%(200MG/ML) 4ML PO ONE (07:45)
[2023-01-29 08:55] LABS: Triglycerides 108 mg/dL (< 150)
[2023-01-29 08:56] LABS: LDL Cholesterol 68 mg/dL (< 100)
[2023-01-29 08:57] LABS: Cholesterol 117 mg/dL (< 200); HDL Cholesterol 38 mg/dL (40-59)
[2023-01-29] MEDS: ASPirin 81 mg TAB PO SCH (09:37)
[2023-01-29] MEDS: METOPROLOL SUCCINATE XL 50 MG TAB PO SCH (09:38)
[2023-01-29] MEDS ORDERED: LISINOPRIL 5 MG TAB PO SCH (10:00)
[2023-01-29] MEDS ORDERED: PANTOPRAZOLE 40 MG TAB PO SCH (10:00)
[2023-01-29] MEDS ORDERED: METOPROLOL SUCCINATE XL 50 MG TAB PO SCH (10:00)
[2023-01-29] MEDS ORDERED: LIDOCAINE 2%HCL (LOCAL ANESTH.) INJ 20ML MDV ONE (13:04)
[2023-01-29] MEDS ORDERED: IODIXANOL 320MG/ML 100ML BTL IV ONE (13:04)
[2023-01-29] MEDS ORDERED: MIDAZOLAM HCL 2MG/2ML 2ml VIAL (1mg/ml) ONE (13:09)
[2023-01-29] MEDS ORDERED: fentaNYL CITRATE 100 MCG/2 ML VL ONE (13:09)
[2023-01-29] MEDS ORDERED: VERAPAMIL 2.5MG/ML INJ 2ML VIAL IV ONE (13:10)
[2023-01-29] MEDS ORDERED: SODIUM CHL 0.9% 50 ML ONE (13:10)
[2023-01-29] MEDS ORDERED: ANGIOMAX 250 MG VIAL IV ONE (13:10)
[2023-01-29] MEDS ORDERED: HEPARIN SODIUM (PORCINE) 5000 UNITS/ML 1ML VIAL ONE (13:31)
[2023-01-29] MEDS ORDERED: CLOPIDOGREL 300 MG TAB ONE (14:23)
[2023-01-29] MEDS ORDERED: TAMSULOSIN HYDROCHLORIDE 0.4 MG CAP PO SCH (18:00)
[2023-01-29] MEDS: ACETYLCYSTEINE ORAL for CIN 20%(200MG/ML) 4ML PO SCH (21:40)
[2023-01-29] MEDS ORDERED: ATORVASTATIN 20 MG TAB PO SCH (22:00)
[2023-01-30 05:00] VITALS: BP 149/78; PULSE 82; RESP 18; TEMP 97.6; O2SAT 93
[2023-01-30 07:01] LABS: Basophils # (auto) 0 10 ^3/uL (0-0.2); Basophils % (auto) 0.5 % (0.0-2.0); Eosinophils # (auto) 0.4 10 ^3/uL (0-0.8); Eosinophils % (auto) 4.1 % (0.0-7.0); Hematocrit 50.2 % (41.0-53.0); Lymphocytes # (auto) 0.9 10 ^3/uL (0.4-5.4); Lymphocytes % (auto) 8.9 % (10.0-50.0); Mean Corpuscular Hemoglobin 32.9 pg (28.0-32.0); Mean Corpuscular Hgb Conc. 33.8 g/dL (32.0-36.0); Mean Corpuscular Volume 97.1 fL (80.0-100.0); Monocytes # (auto) 0.8 10 ^3/uL (0-1.3); Monocytes % (auto) 8.5 % (0.0-12.0); Neutrophils # (auto) 7.6 10 ^3/uL (1.6-8.6); Red Blood Cells 5.17 10^6/uL (4.5-5.90); Red Cell Distribution Width 14.4 % (11.8-14.3); White Blood Cell 9.8 10^3/uL (4.4-10.8)
[2023-01-30 07:04] LABS: Calcium 9.4 mg/dL (8.7-10.4); Chloride 104 mmol/L (98-107); Potassium 3.9 mmol/L (3.5-5.1); Sodium 135 mmol/L (136-145)
[2023-01-30 07:05] LABS: Anion Gap 7.9 (5-15); Carbon Dioxide 23.1 mmol/L (20-30)
[2023-01-30 07:10] LABS: Blood Urea Nitrogen 17 mg/dL (9-23); Glucose 112 mg/dL (74-106)
[2023-01-30 08:00] VITALS: BP 137/91; PULSE 82; PULSE 92; RESP 18; TEMP 98; O2SAT 91
[2023-01-30 08:28] VITALS: PULSE 92; RESP 18; O2SAT 91
[2023-01-30 08:37] LABS: BUN/Creatinine Ratio 14.4 (10.0-20.0)
[2023-01-30] MEDS: ASPirin 81 mg TAB PO SCH (09:18)
[2023-01-30] MEDS: METOPROLOL SUCCINATE XL 50 MG TAB PO SCH (09:19)
[2023-01-30] MEDS: ACETYLCYSTEINE ORAL for CIN 20%(200MG/ML) 4ML PO SCH (09:19)
[2023-01-30] MEDS ORDERED: CLOPIDOGREL BISULFATE 75 MG TAB PO SCH (10:00)
[2023-01-30] MEDS ORDERED: CLOP75TA70 PO (11:12)
[2023-01-30 12:02] VITALS: BP 130/76; PULSE 94; RESP 18; TEMP 98.1; O2SAT 95
[2023-01-30 13:17] VITALS: BP 130/76; PULSE 94; RESP 18; TEMP 98.1; O2SAT 95
== END 2023-01-30 14:30 | disposition home or self-care (01) | DRG 246 ==
LOC: EDUNIT# 15:58 → ER 15:58 → TELE 22:36 → TELE-EAST 01-29 16:36
PROVIDERS: ADMIT Nurse Practitioner; ATTEND Internal Medicine
PROC: 027034Z Dilation of Coronary Artery, One Artery with Drug-eluting Intraluminal Device, Percutaneous Approach (ICD-10-PCS; principal; 2023-01-29)
PROC: 4A023N7 Measurement of Cardiac Sampling and Pressure, Left Heart, Percutaneous Approach (ICD-10-PCS; 2023-01-29)
PROC: B211YZZ Fluoroscopy of Multiple Coronary Arteries using Other Contrast (ICD-10-PCS; 2023-01-29)
DX: I21.4 Non-ST elevation (NSTEMI) myocardial infarction (principal); I50.41 Acute combined systolic (congestive) and diastolic (congestive) heart failure; J96.00 Acute respiratory failure, unspecified whether with hypoxia or hypercapnia; N17.0 Acute kidney failure with tubular necrosis; I47.1 Supraventricular tachycardia; E78.5 Hyperlipidemia, unspecified; E66.9 Obesity, unspecified; E11.9 Type 2 diabetes mellitus without complications; J44.9 Chronic obstructive pulmonary disease, unspecified; I11.0 Hypertensive heart disease with heart failure; I25.10 Atherosclerotic heart disease of native coronary artery without angina pectoris; N40.0 Benign prostatic hyperplasia without lower urinary tract symptoms; Z80.3 Family history of malignant neoplasm of breast; Z82.3 Family history of stroke; Z82.49 Family history of ischemic heart disease and other diseases of the circulatory system; Z83.3 Family history of diabetes mellitus; I25.2 Old myocardial infarction; Z68.30 Body mass index [BMI] 30.0-30.9, adult
CPT/HCPCS: 36415; 71045; 80048; 80053; 80061; 81001; 82962; 83036; 83605; 83735; 83880; 84443; 84484; 85025; 85379; 92928; 93005; 93306; 93458; 96361; 96374; 96375; 99152; 99291; C1874; G0378; J2250; Q9967

== ENCOUNTER 2023-02-05 12:53 | Emergency (ER) | payer OTHER ==
[~2023-02-05] VITALS: Ht 172.7 cm; Wt 80.9 kg
[~2023-02-05 12:53] MED LIST changes: +CLOP75TA70 PO
[2023-02-05 13:20] LABS: Eosinophils # (auto) 0.1 10 ^3/uL (0-0.8); Hemoglobin 18.3 g/dL (13.5-17.5); Monocytes # (auto) 0.8 10 ^3/uL (0-1.3)
[2023-02-05 13:21] LABS: Basophils # (auto) 0 10 ^3/uL (0-0.2); Basophils % (auto) 0.4 % (0.0-2.0); Hematocrit 54.2 % (41.0-53.0); Lymphocytes # (auto) 1.5 10 ^3/uL (0.4-5.4); Lymphocytes % (auto) 13.2 % (10.0-50.0); Mean Corpuscular Hemoglobin 32.4 pg (28.0-32.0); Mean Corpuscular Hgb Conc. 33.7 g/dL (32.0-36.0); Mean Corpuscular Volume 96.1 fL (80.0-100.0); Monocytes % (auto) 7.5 % (0.0-12.0); Neutrophils # (auto) 8.6 10 ^3/uL (1.6-8.6); Neutrophils % (auto) 77.9 % (37.0-80.0); Nucleated Red Blood Cells % 0.1 %; Red Blood Cells 5.64 10^6/uL (4.5-5.90); Red Cell Distribution Width 14.1 % (11.8-14.3); White Blood Cell 11.1 10^3/uL (4.4-10.8)
[2023-02-05] MEDS ORDERED: MORPHINE SULFATE 4 MG/ML SYR/VIAL IV ONE (13:30)
[2023-02-05] MEDS ORDERED: ONDANSETRON HCL 4 MG/2 ML VIAL IV ONE (13:30)
[2023-02-05] MEDS ORDERED: ASPirin 81 mg TAB PO ONE (13:30)
[2023-02-05 13:37] LABS: Alanine Aminotransferase 31 U/L (7-40); Albumin 4.6 g/dL (3.2-4.8); Alkaline Phosphatase 70 U/L (46-116); Anion Gap 9.4 (5-15); Aspartate Aminotransferase 17 U/L (13-40); BUN/Creatinine Ratio 23.3 (10.0-20.0); Bilirubin, Total 0.8 mg/dL (0.2-1.0); Blood Urea Nitrogen 35 mg/dL (9-23); Calcium 9.8 mg/dL (8.5-10.1); Carbon Dioxide 19.6 mmol/L (20-30); Chloride 104 mmol/L (98-107); Glucose 138 mg/dL (74-106); Potassium 4.3 mmol/L (3.5-5.1); Sodium 133 mmol/L (136-145); Total Protein 7.2 g/dL (5.7-8.2)
[2023-02-05 14:00] LABS: INR 1.11 (0.9-1.15); Partial Thromboplastin Time 30.8 SEC (24.5-34.5); Prothrombin Time 11.6 sec (9.3-11.8)
[2023-02-05 14:11] VITALS: PULSE 76; RESP 16; O2SAT 96
[2023-02-05 16:00] VITALS: TEMP 98
[2023-02-05 16:34] LABS: Urine Bacteria NONE SEEN /hpf (None Seen); Urine Blood 1+ /uL (Negative); Urine Clarity Clear (Clear); Urine Protein, UAD Negative (Negative); Urine Specific Gravity 1.008 (1.001-1.035); Urine Urobilinogen Normal (Negative); Urine WBC 2 /hpf (0 - 3)
[2023-02-05 16:35] LABS: Urine Color Straw (Yellow)
[2023-02-05 16:45] VITALS: BP 127/85; PULSE 93; RESP 13; O2SAT 93
[2023-02-05 17:18] LABS: COVID19 ANTIGEN SOFIA FIA NEGATIVE (NEGATIVE)
== END 2023-02-05 18:18 | disposition home or self-care (01) ==
LOC: ER 12:53
DX: R07.89 Other chest pain (principal); D72.829 Elevated white blood cell count, unspecified; E11.9 Type 2 diabetes mellitus without complications; E78.5 Hyperlipidemia, unspecified; I10 Essential (primary) hypertension; Z87.891 Personal history of nicotine dependence; Z20.822 Contact with and (suspected) exposure to COVID-19
CPT/HCPCS: 36415; 71045; 80053; 81001; 83735; 84484; 85025; 85610; 85730; 87426; 93005